=== PATIENT | male | born 1940 | race Caucasian/White ===

== ENCOUNTER 2019-04-03 07:44 | Inpatient (IN) | payer MEDICARE ==
[2019-04-03 08:30] LABS: CHLORIDE,CL 103 mEq/L (98-106); SODIUM,NA 140 mEq/L (136-145)
[2019-04-03] MEDS ORDERED: Sodium Chloride 0.9% 10 ML Syringe FLUSH PRN (09:31)
[2019-04-03] MEDS ORDERED: Temazepam 15 MG Cap PO PRN (09:31)
[2019-04-03] MEDS ORDERED: Acetaminophen 325 MG Tab PO PRN (09:31)
[2019-04-03] MEDS ORDERED: Ondansetron 4 MG/2 ML SDV IV PRN (09:31)
[2019-04-03] MEDS ORDERED: Ondansetron 4 MG Tab.DIS PO PRN (09:31)
[2019-04-03] MEDS ORDERED: traZODone 50 MG Tab PO PRN (09:31)
[2019-04-03] MEDS: Enoxaparin 40 MG/0.4 ML Syringe SUBCUT SCH (10:15)
[2019-04-03] MEDS: Sodium Chloride 0.9% 1,000 ML IV SCH ×2 (10:16→20:06)
[2019-04-03] MEDS ORDERED: Iopamidol 755 Mg/ML 100 ML Bottle IVPUSH ONE (13:36)
[2019-04-03] MEDS ORDERED: metFORMIN 500 MG Tab**OWN MED PO SCH (17:30)
[2019-04-03] MEDS ORDERED: metFORMIN 500 MG Tab PO SCH (17:30)
--- NOTE | 2019-04-03 20:23 | EDM.PDOC ---
ED HPI GENERAL MEDICAL PROBLEM - General Chief Complaint: Neuro Symptoms/Deficits Stated Complaint: DIZZY/UNSTEADY/FELL Time Seen by Provider: 04/03/19 08:10 Source of Information: Reports: Patient, Family History Limitations: Reports: No Limitations - History of Present Illness INITIAL COMMENTS - FREE TEXT/NARRATIVE: Patient presents to ER with complaints of dizziness and a fall. Son reports he was called by his father and states he had gotten up to go to the bathroom downstairs and when up, felt dizzy. He fell to the floor as he has been dealing with issues with balance. Son does feel his conversation was appropriate to him. Nurse reports on arrival, patient seemed slow to answer, did not know date, president and had to think before he answered. On my arrival , denies shortness of breath, chest pain, lightheadedness. States just can't seem to stand or walk well. Answers questions appropriately. He states hasn't seemed to be normal since he had CABG and endarterectomy. Son reports he was staying with his daughter but since returning to live alone, they have been concerned. Doesn't eat or drink all that well, is worried that he will have to get up to void too often as he has to go up and down the stairs to do so. Stroke protocol initiated on arrival. Onset: Today, Sudden Duration: Minutes: Location: Reports: Generalized Associated Symptoms: Reports: Malaise, Weakness. Denies: Confusion, Chest Pain , Fever/Chills, Loss of Appetite, Nausea/Vomiting, Shortness of Breath Neck Pain Score (Numeric/FACES): 2 - Related Data Allergies Allergy/AdvReac Type Severity Reaction Status Date / Time No Known Allergies Allergy Verified 12/07/18 09:14 Home Meds: Home Meds atorvaSTATin [Lipitor] 40 mg PO DAILY 12/07/18 [History] metFORMIN [Glucophage] 1,000 mg PO BID 12/07/18 [History] traZODone HCl [Trazodone HCl] 50 mg PO ASDIRECTED PRN 12/07/18 [History] Aspirin [Trish Advanced] 500 mg PO DAILY 04/03/19 [History] Past Medical History Cardiovascular History: Reports: Bypass, CAD, High Cholesterol, Hypertension Other Cardiovascular History: found that he had carotid stenosis; while testing , found out he needed CABG. CABG on 08-16-18, endarterectomy on 11-10-18; just returned to the [facility]. Did rehab in [facility] while staying with his daughter, 7 previous rehabs there according to our insurance department here. Has seen cardiology since CABG; his chest incision is healing, says his leg incision is healing. appetite good, some dizziness if he gets up fast-- discussed. Does not have a treadmill or bike at home, describes that he has some sort of rowing machine. Encouraged to walk outside. former smoker, Diabetes --says he checks tid, "coming down," discussed. Endocrine/Metabolic History: Reports: Diabetes, Type II Social & Family History - Tobacco Use Smoking Status *Q: Former Smoker Used Tobacco, but Quit: Yes Month/Year Tobacco Last Used: 11y.o - Caffeine Use Caffeine Use: Reports: None - Recreational Drug Use Recreational Drug Use: No ED ROS GENERAL - Review of Systems Review Of Systems: See Below Constitutional: Reports: Weakness, Fatigue, Decreased Appetite. Denies: Fever, Chills, Malaise HEENT: Reports: Rhinitis. Denies: Throat Pain, Vision Change Respiratory: Denies: Shortness of Breath, Cough Cardiovascular: Denies: Chest Pain, Edema, Lightheadedness Endocrine: Reports: Fatigue GI/Abdominal: Denies: Abdominal Pain, Hematochezia, Melena, Nausea, Vomiting : Reports: No Symptoms Musculoskeletal: Reports: Neck Pain Skin: Reports: No Symptoms Neurological: Reports: Dizziness, Weakness - Physical Exam Exam: See Below Exam Limited By: No Limitations General Appearance: Alert, WD/WN, No Apparent Distress Ears: Normal External Exam, Normal TMs Nose: Normal Inspection, Normal Mucosa, No Blood Throat/Mouth: Normal Inspection, Normal Oropharynx, Other (mucous membranes dry) Head Exam: Normocephalic Neck: Normal Inspection, Supple, Non-Tender, Full Range of Motion Respiratory/Chest: No Respiratory Distress, Lungs Clear, Normal Breath Sounds Cardiovascular: Regular Rate, Rhythm GI/Abdominal: Normal Bowel Sounds, Soft, Non-Tender Neuro Exam (Abbreviated): Alert, Oriented, CN II-XII Intact, Normal Cognition, No Motor/Sensory Deficits (patient scores 1 on the stroke scale. Disoriented to time at first when questioned but is able to correct himself.), Abnormal Gait (very unsteady with transfer to wheelchair. ) Extremities: Normal Inspection, No Pedal Edema Skin Exam: Warm, Dry Course - Vital Signs Last Recorded V/S: Last Vital Signs Temp 98.5 F 04/03/19 16:00 Pulse 91 04/03/19 07:54 Resp 16 04/03/19 16:00 BP 132/70 04/03/19 16:00 Pulse Ox 95 04/03/19 16:00 - Orders/Labs/Meds Orders: Active Orders 24 hr Category Date Time Status Chest 2V [CR] Stat Exams 04/03/19 08:51 Taken Head wo Cont [CT] Stat Exams 04/03/19 08:01 Taken Medication Orders Acetaminophen (Tylenol) 650 mg PO Q4H PRN PRN Reason: Pain (Mild 1-3)/fever Enoxaparin Sodium (Lovenox) 40 mg SUBCUT Q24H [facility] Last Admin: 04/03/19 10:15 Dose: 40 mg Sodium Chloride (Normal Saline) 1,000 mls @ 125 mls/hr IV ASDIRECTED [facility] Last Admin: 04/03/19 20:06 Dose: 125 mls/hr Infusion: 04/03/19 18:16 Dose: 125 mls/hr Admin: 04/03/19 10:16 Dose: 125 mls/hr Metformin HCl (Glucophage) 1,000 mg PO BIDMEALS [facility] Atorvastatin 40 Mg (TabOwn Med) 1 each PO DAILY [facility] Aspirin [Trish Advanced] 325 Mg Own Med 325 mg PO DAILY [facility] Ondansetron HCl (Zofran Odt) 4 mg PO Q4H PRN PRN Reason: nausea, able to take PO Ondansetron HCl (Zofran) 4 mg IV Q4H PRN PRN Reason: Nausea/Vomiting Sodium Chloride (Saline Flush) 10 ml FLUSH ASDIRECTED PRN PRN Reason: Keep Vein Open Temazepam (Restoril) 15 mg PO BEDTIME PRN PRN Reason: Sleep Trazodone HCl (Trazodone) 50 mg PO BEDTIME PRN PRN Reason: Insomnia Labs: Laboratory Tests 04/03/19 04/03/19 04/03/19 Range/Units 08:01 08:01 08:01 WBC 5.7 (5.0-10.0) 10^3/uL RBC 4.60 (4.50-6.00) 10^6/uL Hgb 14.3 (14.0-18.0) g/dL Hct 40.1 (40.0-54.0) % MCV 87.2 (82.0-94.0) fL MCH 31.1 (27.0-32.0) pg MCHC 35.7 (33.0-38.0) g/dL RDW Coeff of Vlad 12.5 (11.0-15.0) % Plt Count 159 (150-400) 10^3/uL Neut % (Auto) 52.1 (35-85) % Lymph % (Auto) 36.3 (10-55) % [place] % (Auto) 9.5 (0-16) % Eos % (Auto) 1.6 (0-5) % Baso % (Auto) 0.5 (0-3) % Neut # (Auto) 2.98 (1.80-7.00) 10^3/uL Lymph # (Auto) 2.07 (1.00-4.80) 10^3/uL [place] # (Auto) 0.54 (0.00-0.80) 10^3/uL Eos # (Auto) 0.09 (0.00-0.45) 10^3/uL Baso # (Auto) 0.03 10^3/uL PT 11.6 (9.7-12.3) SEC INR 1.13 (0.92-1.18) APTT 29.7 (23.2-32.3) SEC Sodium (136-145) mEq/L Potassium (3.5-5.0) mEq/L Chloride (98-106) mEq/L Carbon Dioxide (21-32) mmol/L BUN (7-18) mg/dL Creatinine (0.7-1.3) mg/dL Est Cr Clr Drug Dosing mL/min Estimated GFR (MDRD) (>=60) mL/min Glucose (75-99) mg/dL Calcium (8.4-10.1) mg/dL Total Bilirubin (0.0-1.0) mg/dL AST (15-37) U/L ALT (12-78) U/L Alkaline Phosphatase (46-116) U/L Creatine Kinase (35-232) U/L Troponin I (0.00-0.06) ng/mL Total Protein (6.4-8.2) g/dL Albumin (3.4-5.0) g/dL Urine Color Yellow (YELLOW) Urine Appearance Clear (CLEAR) Urine pH 7.0 (4.5-8.0) Ur Specific [place] 1.015 (1.003-1.020) Urine Protein Negative (NEGATIVE) mg/dL Urine Glucose (UA) Negative (NEGATIVE) mg/dL Urine Ketones Negative (NEGATIVE) mg/dL Urine Occult Blood Negative (NEGATIVE) Urine Nitrite Negative (NEGATIVE) Urine Bilirubin Negative (NEGATIVE) Urine Urobilinogen 0.2 (0.2-1.0) EU/dL Ur Leukocyte Esterase Negative (NEGATIVE) Urine RBC Not seen (0-5) /HPF Urine WBC 0-5 (0-5) /HPF Ur Squamous Epith Cells Rare (NOT SEEN) /HPF 04/03/19 Range/Units 08:01 WBC (5.0-10.0) 10^3/uL RBC (4.50-6.00) 10^6/uL Hgb (14.0-18.0) g/dL Hct (40.0-54.0) % MCV (82.0-94.0) fL MCH (27.0-32.0) pg MCHC (33.0-38.0) g/dL RDW Coeff of Vlad (11.0-15.0) % Plt Count (150-400) 10^3/uL Neut % (Auto) (35-85) % Lymph % (Auto) (10-55) % [place] % (Auto) (0-16) % Eos % (Auto) (0-5) % Baso % (Auto) (0-3) % Neut # (Auto) (1.80-7.00) 10^3/uL Lymph # (Auto) (1.00-4.80) 10^3/uL [place] # (Auto) (0.00-0.80) 10^3/uL Eos # (Auto) (0.00-0.45) 10^3/uL Baso # (Auto) 10^3/uL PT (9.7-12.3) SEC INR (0.92-1.18) APTT (23.2-32.3) SEC Sodium 140 (136-145) mEq/L Potassium 4.8 (3.5-5.0) mEq/L Chloride 103 (98-106) mEq/L Carbon Dioxide 30 (21-32) mmol/L BUN 20 H (7-18) mg/dL Creatinine 0.9 (0.7-1.3) mg/dL Est Cr Clr Drug Dosing 62.03 mL/min Estimated GFR (MDRD) > 60 (>=60) mL/min Glucose 165 H (75-99) mg/dL Calcium 9.1 (8.4-10.1) mg/dL Total Bilirubin 0.8 (0.0-1.0) mg/dL AST 19 (15-37) U/L ALT 27 (12-78) U/L Alkaline Phosphatase 54 (46-116) U/L Creatine Kinase 70 (35-232) U/L Troponin I < 0.017 (0.00-0.06) ng/mL Total Protein 6.6 (6.4-8.2) g/dL Albumin 4.0 (3.4-5.0) g/dL Urine Color (YELLOW) Urine Appearance (CLEAR) Urine pH (4.5-8.0) Ur Specific [place] (1.003-1.020) Urine Protein (NEGATIVE) mg/dL Urine Glucose (UA) (NEGATIVE) mg/dL Urine Ketones (NEGATIVE) mg/dL Urine Occult Blood (NEGATIVE) Urine Nitrite (NEGATIVE) Urine Bilirubin (NEGATIVE) Urine Urobilinogen (0.2-1.0) EU/dL Ur Leukocyte Esterase (NEGATIVE) Urine RBC (0-5) /HPF Urine WBC (0-5) /HPF Ur Squamous Epith Cells (NOT SEEN) /HPF Meds: Medications Generic Name Dose Route Start Last Admin Trade Name Freq PRN Reason Stop Dose Admin Acetaminophen 650 mg 04/03/19 09:31 Tylenol PO Q4H PRN Pain (Mild 1-3)/fever Enoxaparin Sodium 40 mg 04/03/19 10:00 04/03/19 10:15 Lovenox SUBCUT 40 mg Q24H [facility] Administration Sodium Chloride 1,000 mls @ 125 mls/hr 04/03/19 09:31 04/03/19 20:06 Normal Saline IV 125 mls/hr ASDIRECTED [facility]ANTHA Administration Metformin HCl 1,000 mg 04/03/19 17:30 Glucophage PO BIDMEALS [facility] Atorvastatin 40 Mg 1 each 04/04/19 08:00 TabOwn Med PO DAILY [facility] Aspirin [Trish 325 mg 04/04/19 08:00 Advanced] 325 Mg PO Own Med DAILY [facility] Ondansetron HCl 4 mg 04/03/19 09:31 Zofran Odt PO Q4H PRN nausea, able to take PO Ondansetron HCl 4 mg 04/03/19 09:31 Zofran IV Q4H PRN Nausea/Vomiting Sodium Chloride 10 ml 04/03/19 09:31 Saline Flush FLUSH ASDIRECTED PRN Keep Vein Open Temazepam 15 mg 04/03/19 09:31 Restoril PO BEDTIME PRN Sleep Trazodone HCl 50 mg 04/03/19 09:31 Trazodone PO BEDTIME PRN Insomnia Discontinued Medications Generic Name Dose Route Start Last Admin Trade Name Freq PRN Reason Stop Dose Admin Aspirin 243 mg 04/04/19 08:00 Halfprin PO DAILY [facility] Iopamidol 100 ml 04/03/19 13:36 04/03/19 14:02 Isovue-370 (76%) IVPUSH 04/03/19 13:37 100 ml ONETIME ONE Administration Metformin HCl 500 mg 04/03/19 17:30 Glucophage PO BIDMEALS [facility] Non-Formulary Medication 500 mg 04/04/19 08:00 Aspirin [Trish Advanced] PO DAILY [facility] - Re-Assessments/Exams Free Text/Narrative Re-Assessment/Exam: 04/03/[address] scan normal. Did discuss patient with Mu Sadler. He did have MRI and CTA done last spring, which led to the endarterectomy. No evidence of CVA at that time. Will repeat CTA today to ensure has not occluded. Admit to observation. Social service will consult regarding home safety. Departure - Departure Time of Disposition: 09:30 Disposition: Refer to Observation Condition: Undetermined Clinical Impression: Weakness - Discharge Information *PRESCRIPTION DRUG MONITORING PROGRAM REVIEWED*: No *COPY OF PRESCRIPTION DRUG MONITORING REPORT IN PATIENT SERGIO: No Sepsis Event Note - Evaluation Sepsis Screening Result: No Definite Risk - Problem List & Annotations (1) Weakness SNOMED Code(s): 58171372 Code(s): R53.1 - WEAKNESS Status: Acute Priority: High Current Visit: Yes - Problem List Review Problem List Initiated/Reviewed/Updated: Yes - My Orders Last 24 Hours: My Active Orders 04/03/19 08:01 Head wo Cont [CT] Stat 04/03/19 08:51 Chest 2V [CR] Stat - Assessment/Plan Admission H&P: Please use this note as an admission H&P Last 24 Hours: My Active Orders 04/03/19 08:01 Head wo Cont [CT] Stat 04/03/19 08:51 Chest 2V [CR] Stat Assessment:: Weakness Plan: Patient admitted observation. Cardiac monitoring. Neurological monitoring. Physical therapy as directed. Social service consult.
[2019-04-04] MEDS: Sodium Chloride 0.9% 1,000 ML IV SCH ×2 (03:38→11:30)
[2019-04-04] MEDS: ASPIRIN 325 MG PO SCH (07:40)
[2019-04-04 07:44] LABS: CHLORIDE,CL 109 mEq/L (98-106); SODIUM,NA 145 mEq/L (136-145)
[2019-04-04] MEDS ORDERED: atorvaSTATin 40 MG Tab**OWN MED PO SCH (08:00)
[2019-04-04] MEDS ORDERED: ASPIRIN 500 MG PO SCH (08:00)
[2019-04-04] MEDS ORDERED: Aspirin 81 MG Tab.EC PO SCH (08:00)
[2019-04-04] MEDS: Enoxaparin 40 MG/0.4 ML Syringe SUBCUT SCH (11:27)
[2019-04-04] MEDS ORDERED: metFORMIN 500 MG Tab PO SCH (14:02)
--- NOTE | 2019-04-04 20:29 | PCM.PN ---
- General Info Date of Service: 04/04/19 Admission Dx/Problem (Free Text): Weakness Vulnerable Adult Functional Status: Reports: Pain Controlled, Tolerating Diet, Ambulating - Review of Systems General: Reports: Weakness HEENT: Reports: No Symptoms Pulmonary: Denies: Shortness of Breath, Cough Cardiovascular: Denies: Chest Pain, Lightheadedness Gastrointestinal: Denies: Abdominal Pain, Nausea, Vomiting Genitourinary: Reports: Incontinence Musculoskeletal: Reports: No Symptoms Skin: Reports: No Symptoms Neurological: Reports: Difficulty Walking, Weakness, Gait Disturbance - Patient Data Vitals - Most Recent: Last Vital Signs Temp 98.7 F 04/04/19 16:00 Pulse 65 04/04/19 16:00 Resp 20 04/04/19 16:00 BP 151/81 H 04/04/19 16:00 Pulse Ox 96 04/04/19 16:00 Weight - Most Recent: 146 lb 3.2 oz I&O - Last 24 Hours: Intake & Output 04/04/19 04/04/19 04/04/19 06:59 14:59 22:59 Intake Total 942 983 Balance 942 983 Lab Results Last 24 Hours: Laboratory Results - last 24 hr 04/03/19 04/04/19 04/04/19 Range/Units 20:25 07:00 07:00 WBC 6.3 (5.0-10.0) 10^3/uL RBC 4.24 L (4.50-6.00) 10^6/uL Hgb 13.2 L (14.0-18.0) g/dL Hct 37.7 L (40.0-54.0) % MCV 88.9 (82.0-94.0) fL MCH 31.1 (27.0-32.0) pg MCHC 35.0 (33.0-38.0) g/dL RDW Coeff of Vlad 12.6 (11.0-15.0) % Plt Count 145 L (150-400) 10^3/uL Neut % (Auto) 47.8 (35-85) % Lymph % (Auto) 38.9 (10-55) % [place] % (Auto) 10.6 (0-16) % Eos % (Auto) 2.2 (0-5) % Baso % (Auto) 0.5 (0-3) % Neut # (Auto) 3.02 (1.80-7.00) 10^3/uL Lymph # (Auto) 2.46 (1.00-4.80) 10^3/uL [place] # (Auto) 0.67 (0.00-0.80) 10^3/uL Eos # (Auto) 0.14 (0.00-0.45) 10^3/uL Baso # (Auto) 0.03 10^3/uL Sodium 145 (136-145) mEq/L Potassium 4.3 (3.5-5.0) mEq/L Chloride 109 H (98-106) mEq/L Carbon Dioxide 28 (21-32) mmol/L BUN 15 (7-18) mg/dL Creatinine 0.9 (0.7-1.3) mg/dL Est Cr Clr Drug Dosing 62.03 mL/min Estimated GFR (MDRD) > 60 (>=60) mL/min Glucose 143 H (75-99) mg/dL POC Glucose 148 H (75-105) mg/dl Calcium 8.4 (8.4-10.1) mg/dL C-Reactive Protein < 0.2 L (0.2-0.8) mg/dL 04/04/ Range/Units 08:07 WBC (5.0-10.0) 10^3/uL RBC (4.50-6.00) 10^6/uL Hgb (14.0-18.0) g/dL Hct (40.0-54.0) % MCV (82.0-94.0) fL MCH (27.0-32.0) pg MCHC (33.0-38.0) g/dL RDW Coeff of Vlad (11.0-15.0) % Plt Count (150-400) 10^3/uL Neut % (Auto) (35-85) % Lymph % (Auto) (10-55) % [place] % (Auto) (0-16) % Eos % (Auto) (0-5) % Baso % (Auto) (0-3) % Neut # (Auto) (1.80-7.00) 10^3/uL Lymph # (Auto) (1.00-4.80) 10^3/uL [place] # (Auto) (0.00-0.80) 10^3/uL Eos # (Auto) (0.00-0.45) 10^3/uL Baso # (Auto) 10^3/uL Sodium (136-145) mEq/L Potassium (3.5-5.0) mEq/L Chloride (98-106) mEq/L Carbon Dioxide (21-32) mmol/L BUN (7-18) mg/dL Creatinine (0.7-1.3) mg/dL Est Cr Clr Drug Dosing mL/min Estimated GFR (MDRD) (>=60) mL/min Glucose (75-99) mg/dL POC Glucose 121 H (75-105) mg/dl Calcium (8.4-10.1) mg/dL C-Reactive Protein (0.2-0.8) mg/dL Med Orders - Current: Current Medications Acetaminophen (Tylenol) 650 mg PO Q4H PRN PRN Reason: Pain (Mild 1-3)/fever Atorvastatin Calcium (Lipitor) 40 mg PO DAILY [facility] Enoxaparin Sodium (Lovenox) 40 mg SUBCUT Q24H [facility] Last Admin: 04/04/19 11:27 Dose: 40 mg Metformin HCl (Glucophage) 1,000 mg PO BIDMEALS [facility] Aspirin [Trish Advanced] 325 Mg Own Med 325 mg PO DAILY [facility] Last Admin: 04/04/19 07:40 Dose: 325 mg Ondansetron HCl (Zofran Odt) 4 mg PO Q4H PRN PRN Reason: nausea, able to take PO Ondansetron HCl (Zofran) 4 mg IV Q4H PRN PRN Reason: Nausea/Vomiting Sodium Chloride (Saline Flush) 10 ml FLUSH ASDIRECTED PRN PRN Reason: Keep Vein Open Temazepam (Restoril) 15 mg PO BEDTIME PRN PRN Reason: Sleep Trazodone HCl (Trazodone) 50 mg PO BEDTIME PRN PRN Reason: Insomnia Discontinued Medications Aspirin (Halfprin) 243 mg PO DAILY [facility] Atorvastatin Calcium (Lipitor) 40 mg PO DAILY [facility] Sodium Chloride (Normal Saline) 1,000 mls @ 125 mls/hr IV ASDIRECTED [facility] Last Admin: 04/04/19 11:30 Dose: 125 mls/hr Iopamidol (Isovue-370 (76%)) 100 ml IVPUSH ONETIME ONE Stop: 04/03/19 13:37 Last Admin: 04/03/19 14:02 Dose: 100 ml Metformin HCl (Glucophage) 500 mg PO BIDMEALS [facility] Metformin HCl (Glucophage) 1,000 mg PO BIDMEALS [facility] Metformin HCl (Glucophage) 1,000 mg PO BIDMEALS [facility] Atorvastatin 40 Mg (TabOwn Med) 1 each PO DAILY [facility] Last Admin: 04/04/19 07:40 Dose: 1 each Non-Formulary Medication (Aspirin [Trish Advanced]) 500 mg PO DAILY [facility] - Exam General: Alert, Oriented HEENT: Mucous Membr. Moist/[place] Neck: Supple Lungs: Clear to Auscultation, Normal Respiratory Effort Cardiovascular: Regular Rate, Regular Rhythm GI/Abdominal Exam: Normal Bowel Sounds, Soft, Non-Tender Extremities: Normal Inspection, No Pedal Edema Skin: Warm, Dry Neurological: No New Focal Deficit Sepsis Event Note - Evaluation Sepsis Screening Result: No Definite Risk - Focused Exam Vital Signs: Vital Signs Temp Pulse Resp BP BP Pulse Ox 04/04/19 16:00 98.7 F 65 20 151/81 H 96 04/04/19 12:00 99.2 F 71 20 138/67 95 Date Exam was Performed: 04/04/19 Time Exam was Performed: 20:24 - Problem List & Annotations (1) Weakness SNOMED Code(s): 23116954 Code(s): R53.1 - WEAKNESS Status: Acute Priority: High Current Visit: Yes - Problem List Review Problem List Initiated/Reviewed/Updated: Yes - My Orders Last 24 Hours: My Active Orders 04/04/19 08:00 Aspirin [Trish Advanced] 325 mg PO DAILY 04/04/19 11:39 Patient Status [ADT] Routine 04/04/19 17:30 metFORMIN [Glucophage] 1,000 mg PO BIDMEALS 04/05/19 08:00 atorvaSTATin [Lipitor] 40 mg PO DAILY - Assessment Assessment:: Weakness Vulnerable Adult - Plan Plan:: Patient alert and oriented this am. Conversive. Denies any complaints of chest pain, shortness of breath or dizziness. He does still have trouble with balance, transfers. Staff relates very unsteady at times. CTA of head and neck stable, no acute changes. WBC remains normal today at 6.3. Electrolytes normal. CRP negative. Will continue with PT. services host to discuss discharge planning with patient and children as they have concern about home safety, inability to care for self.
[2019-04-05] MEDS: ASPIRIN 325 MG PO SCH (07:29)
[2019-04-05] MEDS: Enoxaparin 40 MG/0.4 ML Syringe SUBCUT SCH (10:58)
[2019-04-05] MEDS: metFORMIN 500 MG Tab PO SCH (17:18)
--- NOTE | 2019-04-05 21:32 | PCM.PN ---
- General Info Date of Service: 04/05/19 Admission Dx/Problem (Free Text): Weakness Vulnerable Adult Functional Status: Reports: Pain Controlled, Tolerating Diet, Ambulating - Review of Systems General: Reports: Weakness, Fatigue. Denies: Malaise HEENT: Reports: No Symptoms Pulmonary: Reports: Cough. Denies: Shortness of Breath Cardiovascular: Denies: Chest Pain, Edema, Lightheadedness Gastrointestinal: Denies: Abdominal Pain, Nausea, Vomiting Genitourinary: Reports: No Symptoms Musculoskeletal: Reports: No Symptoms Skin: Reports: No Symptoms Neurological: Reports: Pre-Existing Deficit, Difficulty Walking, Weakness Psychiatric: Reports: No Symptoms - Patient Data Vitals - Most Recent: Last Vital Signs Temp 99.3 F 04/05/19 15:43 Pulse 71 04/05/19 15:43 Resp 20 04/05/19 15:43 BP 136/76 04/05/19 15:43 Pulse Ox 96 04/05/19 15:43 Weight - Most Recent: 146 lb 3.2 oz Lab Results Last 24 Hours: Laboratory Results - last 24 hr 04/05/19 04/05/19 Range/Units 08:17 20:20 POC Glucose 172 H 258 H (75-105) mg/dl Med Orders - Current: Current Medications Acetaminophen (Tylenol) 650 mg PO Q4H PRN PRN Reason: Pain (Mild 1-3)/fever Atorvastatin Calcium (Lipitor) 40 mg PO DAILY [facility] Last Admin: 04/05/19 07:30 Dose: 40 mg Enoxaparin Sodium (Lovenox) 40 mg SUBCUT Q24H [facility] Last Admin: 04/05/19 10:58 Dose: 40 mg Metformin HCl (Glucophage) 1,000 mg PO BIDMEALS [facility] Last Admin: 04/05/19 17:18 Dose: 1,000 mg Aspirin [Trish Advanced] 325 Mg Own Med 325 mg PO DAILY [facility] Last Admin: 04/05/19 07:29 Dose: 325 mg Ondansetron HCl (Zofran Odt) 4 mg PO Q4H PRN PRN Reason: nausea, able to take PO Ondansetron HCl (Zofran) 4 mg IV Q4H PRN PRN Reason: Nausea/Vomiting Sodium Chloride (Saline Flush) 10 ml FLUSH ASDIRECTED PRN PRN Reason: Keep Vein Open Temazepam (Restoril) 15 mg PO BEDTIME PRN PRN Reason: Sleep Trazodone HCl (Trazodone) 50 mg PO BEDTIME PRN PRN Reason: Insomnia Discontinued Medications Aspirin (Halfprin) 243 mg PO DAILY [facility] Atorvastatin Calcium (Lipitor) 40 mg PO DAILY [facility] Sodium Chloride (Normal Saline) 1,000 mls @ 125 mls/hr IV ASDIRECTED [facility] Last Admin: 04/04/19 11:30 Dose: 125 mls/hr Iopamidol (Isovue-370 (76%)) 100 ml IVPUSH ONETIME ONE Stop: 04/03/19 13:37 Last Admin: 04/03/19 14:02 Dose: 100 ml Metformin HCl (Glucophage) 500 mg PO BIDMEALS [facility] Metformin HCl (Glucophage) 1,000 mg PO BIDMEALS [facility] Metformin HCl (Glucophage) 1,000 mg PO BIDMEALS [facility] Atorvastatin 40 Mg (TabOwn Med) 1 each PO DAILY [facility] Last Admin: 04/04/19 07:40 Dose: 1 each Non-Formulary Medication (Aspirin [Trish Advanced]) 500 mg PO DAILY [facility] - Exam General: Alert, Oriented HEENT: Mucous Membr. Moist/[place] Neck: Supple Lungs: Clear to Auscultation, Normal Respiratory Effort Cardiovascular: Regular Rate, Regular Rhythm GI/Abdominal Exam: Normal Bowel Sounds, Soft, Non-Tender Extremities: Normal Inspection, No Pedal Edema Skin: Warm, Dry Neurological: No New Focal Deficit Sepsis Event Note - Evaluation Sepsis Screening Result: No Definite Risk - Focused Exam Vital Signs: Vital Signs Temp Pulse Resp BP Pulse Ox 04/05/19 15:43 99.3 F 71 20 136/76 96 04/05/19 11:48 98.8 F 65 20 159/79 H 96 Date Exam was Performed: 04/05/19 Time Exam was Performed: 21:28 - Problem List & Annotations (1) Weakness SNOMED Code(s): 78378825 Code(s): R53.1 - WEAKNESS Status: Acute Priority: High Current Visit: Yes - Problem List Review Problem List Initiated/Reviewed/Updated: Yes - My Orders Last 24 Hours: My Active Orders 04/05/19 08:00 atorvaSTATin [Lipitor] 40 mg PO DAILY 04/06/19 12:00 Brain wo Cont [MR] Routine - Assessment Assessment:: Weakness Vulnerable Adult - Plan Plan:: Patient alert and oriented this am. Conversive. Denies any complaints of chest pain, shortness of breath or dizziness. He does still have trouble with balance, transfers. Staff relates very unsteady at times. CTA of head and neck stable, no acute changes. WBC remains normal today at 6.3. Electrolytes normal. CRP negative. Will continue with PT. library services assistant to discuss discharge planning with patient and children as they have concern about home safety, inability to care for self. 04-05-2019 Patient is doing well this am. Denies any concerns. No chest pain, shortness of breath. Does have mild cough at times when eating. Daughter reports that has been happening off an on since June. He does continue to have a shuffling gait at times. Uses walker with standby assist. Working with PT. Family conference held today with discussion about past and current symptoms. Has been having difficulties with gait, dysphagia at times. Spent 5 months living with daughter and symptoms waxed and waned while there as well. Did have speech therapy with meal adjustments for dysphagia, does not always follow these , especially since returning home. Plan to proceed with MRI tomorrow. snf placement for strengthening. Continue PT. Patient is in agreement with plan. Likely transfer to swing bed status tomorrow.
[2019-04-06] MEDS: metFORMIN 500 MG Tab PO SCH ×2 (08:14→17:05)
[2019-04-06] MEDS: ASPIRIN 325 MG PO SCH (08:15)
[2019-04-06] MEDS: Enoxaparin 40 MG/0.4 ML Syringe SUBCUT SCH (11:21)
--- NOTE | 2019-04-06 14:22 | PCM.PN ---
- General Info Date of Service: 04/06/19 Admission Dx/Problem (Free Text): Weakness Vulnerable Adult Functional Status: Reports: Pain Controlled, Tolerating Diet, Ambulating - Review of Systems General: Reports: Weakness, Fatigue. Denies: Fever, Malaise HEENT: Reports: No Symptoms Pulmonary: Denies: Shortness of Breath, Cough Cardiovascular: Denies: Chest Pain, Edema, Lightheadedness Gastrointestinal: Denies: Abdominal Pain, Nausea, Vomiting Genitourinary: Reports: No Symptoms Musculoskeletal: Reports: No Symptoms Skin: Reports: No Symptoms Neurological: Reports: Pre-Existing Deficit, Difficulty Walking, Weakness, Gait Disturbance - Patient Data Vitals - Most Recent: Last Vital Signs Temp 99 F 04/06/19 11:23 Pulse 79 04/06/19 11:23 Resp 16 04/06/19 11:23 BP 124/58 L 04/06/19 11:23 Pulse Ox 98 04/06/19 11:23 Weight - Most Recent: 146 lb 3.2 oz Lab Results Last 24 Hours: Laboratory Results - last 24 hr 04/05/19 Range/Units 20:20 POC Glucose 258 H (75-105) mg/dl Med Orders - Current: Current Medications Acetaminophen (Tylenol) 650 mg PO Q4H PRN PRN Reason: Pain (Mild 1-3)/fever Atorvastatin Calcium (Lipitor) 40 mg PO DAILY [facility] Last Admin: 04/06/19 08:15 Dose: 40 mg Enoxaparin Sodium (Lovenox) 40 mg SUBCUT Q24H [facility] Last Admin: 04/06/19 11:21 Dose: 40 mg Metformin HCl (Glucophage) 1,000 mg PO BIDMEALS [facility] Last Admin: 04/06/19 08:14 Dose: 1,000 mg Aspirin [Trish Advanced] 325 Mg Own Med 325 mg PO DAILY [facility] Last Admin: 04/06/19 08:15 Dose: 325 mg Ondansetron HCl (Zofran Odt) 4 mg PO Q4H PRN PRN Reason: nausea, able to take PO Ondansetron HCl (Zofran) 4 mg IV Q4H PRN PRN Reason: Nausea/Vomiting Sodium Chloride (Saline Flush) 10 ml FLUSH ASDIRECTED PRN PRN Reason: Keep Vein Open Temazepam (Restoril) 15 mg PO BEDTIME PRN PRN Reason: Sleep Trazodone HCl (Trazodone) 50 mg PO BEDTIME PRN PRN Reason: Insomnia Discontinued Medications Aspirin (Halfprin) 243 mg PO DAILY [facility] Atorvastatin Calcium (Lipitor) 40 mg PO DAILY [facility] Sodium Chloride (Normal Saline) 1,000 mls @ 125 mls/hr IV ASDIRECTED [facility] Last Admin: 04/04/19 11:30 Dose: 125 mls/hr Iopamidol (Isovue-370 (76%)) 100 ml IVPUSH ONETIME ONE Stop: 04/03/19 13:37 Last Admin: 04/03/19 14:02 Dose: 100 ml Metformin HCl (Glucophage) 500 mg PO BIDMEALS [facility] Metformin HCl (Glucophage) 1,000 mg PO BIDMEALS [facility] Metformin HCl (Glucophage) 1,000 mg PO BIDMEALS [facility] Atorvastatin 40 Mg (TabOwn Med) 1 each PO DAILY [facility] Last Admin: 04/04/19 07:40 Dose: 1 each Non-Formulary Medication (Aspirin [Trish Advanced]) 500 mg PO DAILY [facility] - Exam General: Alert, Oriented HEENT: Pupils Reactive, Mucous Membr. Moist/[place], Other (pupils unequal again today) Neck: Supple Lungs: Clear to Auscultation, Normal Respiratory Effort Cardiovascular: Regular Rate, Regular Rhythm GI/Abdominal Exam: Normal Bowel Sounds, Soft, Non-Tender Extremities: Normal Inspection, No Pedal Edema Skin: Warm, Dry Neurological: No New Focal Deficit Sepsis Event Note - Evaluation Sepsis Screening Result: No Definite Risk - Focused Exam Vital Signs: Vital Signs Temp Pulse Resp BP Pulse Ox 04/06/19 11:23 99 F 79 16 124/58 L 98 04/06/19 08:00 97.9 F 62 18 126/79 98 04/06/19 04:00 98.8 F 63 16 140/76 97 Date Exam was Performed: 04/06/19 Time Exam was Performed: 14:16 - Problem List & Annotations (1) Weakness SNOMED Code(s): 89070758 Code(s): R53.1 - WEAKNESS Status: Acute Priority: High Current Visit: Yes - Problem List Review Problem List Initiated/Reviewed/Updated: Yes - My Orders Last 24 Hours: My Active Orders 04/06/19 07:46 Ready for Discharge [RC] PER UNIT ROUTINE 04/06/19 12:00 Brain wo Cont [MR] Routine - Assessment Assessment:: Weakness Vulnerable Adult - Plan Plan:: Patient alert and oriented this am. Conversive. Denies any complaints of chest pain, shortness of breath or dizziness. He does still have trouble with balance, transfers. Staff relates very unsteady at times. CTA of head and neck stable, no acute changes. WBC remains normal today at 6.3. Electrolytes normal. CRP negative. Will continue with PT. customer services supervisor to discuss discharge planning with patient and children as they have concern about home safety, inability to care for self. 04-05-2019 Patient is doing well this am. Denies any concerns. No chest pain, shortness of breath. Does have mild cough at times when eating. Daughter reports that has been happening off an on since June. He does continue to have a shuffling gait at times. Uses walker with standby assist. Working with PT. Family conference held today with discussion about past and current symptoms. Has been having difficulties with gait, dysphagia at times. Spent 5 months living with daughter and symptoms waxed and waned while there as well. Did have speech therapy with meal adjustments for dysphagia, does not always follow these , especially since returning home. Plan to proceed with MRI tomorrow. [facility] placement for strengthening. Continue PT. Patient is in agreement with plan. Likely transfer to swing bed status tomorrow. 04-06-2019 Patient stable this am, denies new concerns. Does admit that he feels unsteady when up. Pupils are noted again to be unequal but feels no headache, lightheadedness or changes. Does use walker for ambulation with standby assist , nurses report has shuffling gait and does lean to side at times. Has been working with PT. No dysphagia or concerns today, states tolerating meals well. MRI scheduled this afternoon. Nursing placement arranged for [facility] on Tuesday. Will continue to assist, patient vulnerable adult.
[2019-04-07] MEDS: metFORMIN 500 MG Tab PO SCH ×2 (08:11→17:52)
[2019-04-07] MEDS: ASPIRIN 325 MG PO SCH (08:39)
[2019-04-07] MEDS: Enoxaparin 40 MG/0.4 ML Syringe SUBCUT SCH (12:01)
--- NOTE | 2019-04-07 12:31 | PCM.PN ---
- General Info Date of Service: 04/07/19 Admission Dx/Problem (Free Text): Weakness Vulnerable Adult Functional Status: Reports: Pain Controlled - Review of Systems General: Reports: No Symptoms. Denies: Fever HEENT: Reports: No Symptoms Pulmonary: Reports: No Symptoms. Denies: Shortness of Breath Cardiovascular: Reports: No Symptoms. Denies: Chest Pain Gastrointestinal: Reports: No Symptoms. Denies: Abdominal Pain Genitourinary: Reports: No Symptoms Musculoskeletal: Reports: No Symptoms Skin: Reports: No Symptoms Neurological: Reports: No Symptoms Psychiatric: Reports: No Symptoms - Patient Data Vitals - Most Recent: Last Vital Signs Temp 36.2 C 04/07/19 07:25 Pulse 87 04/07/19 07:25 Resp 16 04/07/19 07:25 BP 103/63 04/07/19 07:25 Pulse Ox 98 04/07/19 07:25 Weight - Most Recent: 66.315 kg Lab Results Last 24 Hours: Laboratory Results - last 24 hr 04/06/19 04/07/19 Range/Units 23:49 07:30 POC Glucose 190 H 158 H (75-105) mg/dl Med Orders - Current: Current Medications Acetaminophen (Tylenol) 650 mg PO Q4H PRN PRN Reason: Pain (Mild 1-3)/fever Atorvastatin Calcium (Lipitor) 40 mg PO DAILY [facility] Last Admin: 04/07/19 08:12 Dose: 40 mg Enoxaparin Sodium (Lovenox) 40 mg SUBCUT Q24H [facility] Last Admin: 04/07/19 12:01 Dose: 40 mg Metformin HCl (Glucophage) 1,000 mg PO BIDMEALS [facility] Last Admin: 04/07/19 08:11 Dose: 1,000 mg Aspirin [Trish Advanced] 325 Mg Own Med 325 mg PO DAILY [facility] Last Admin: 04/07/19 08:39 Dose: 325 mg Ondansetron HCl (Zofran Odt) 4 mg PO Q4H PRN PRN Reason: nausea, able to take PO Ondansetron HCl (Zofran) 4 mg IV Q4H PRN PRN Reason: Nausea/Vomiting Sodium Chloride (Saline Flush) 10 ml FLUSH ASDIRECTED PRN PRN Reason: Keep Vein Open Temazepam (Restoril) 15 mg PO BEDTIME PRN PRN Reason: Sleep Trazodone HCl (Trazodone) 50 mg PO BEDTIME PRN PRN Reason: Insomnia Discontinued Medications Aspirin (Halfprin) 243 mg PO DAILY [facility] Atorvastatin Calcium (Lipitor) 40 mg PO DAILY [facility] Sodium Chloride (Normal Saline) 1,000 mls @ 125 mls/hr IV ASDIRECTED [facility] Last Admin: 04/04/19 11:30 Dose: 125 mls/hr Iopamidol (Isovue-370 (76%)) 100 ml IVPUSH ONETIME ONE Stop: 04/03/19 13:37 Last Admin: 04/03/19 14:02 Dose: 100 ml Metformin HCl (Glucophage) 500 mg PO BIDMEALS [facility] Metformin HCl (Glucophage) 1,000 mg PO BIDMEALS [facility] Metformin HCl (Glucophage) 1,000 mg PO BIDMEALS [facility] Atorvastatin 40 Mg (TabOwn Med) 1 each PO DAILY [facility] Last Admin: 04/04/19 07:40 Dose: 1 each Non-Formulary Medication (Aspirin [Trish Advanced]) 500 mg PO DAILY [facility] - Exam General: Alert, Cooperative Neck: Supple Lungs: Clear to Auscultation, Normal Respiratory Effort Cardiovascular: Regular Rate, Regular Rhythm, Murmurs GI/Abdominal Exam: Normal Bowel Sounds, Soft, Non-Tender Back Exam: Normal Inspection, Full Range of Motion Extremities: Normal Inspection, Normal Range of Motion, Non-Tender, No Pedal Edema, Normal Capillary Refill Peripheral Pulses: 2+: Radial (L) Skin: Warm, Dry, Intact Neurological: No New Focal Deficit Psy/Mental Status: Alert, Normal Affect, Normal Mood Sepsis Event Note - Evaluation Sepsis Screening Result: No Definite Risk - Focused Exam Vital Signs: Vital Signs Temp Pulse Resp BP Pulse Ox 04/07/19 07:25 36.2 C 87 16 103/63 98 04/07/19 04:00 36.8 C 66 18 142/76 H 97 Date Exam was Performed: 04/07/19 Time Exam was Performed: 12:49 - Problem List & Annotations (1) Weakness SNOMED Code(s): 74598925 Code(s): R53.1 - WEAKNESS Status: Acute Priority: High Current Visit: Yes - Problem List Review Problem List Initiated/Reviewed/Updated: Yes - Assessment Assessment:: Weakness Vulnerable Adult - Plan Plan:: Patient alert and oriented this am. Conversive. Denies any complaints of chest pain, shortness of breath or dizziness. He does still have trouble with balance, transfers. Staff relates very unsteady at times. CTA of head and neck stable, no acute changes. WBC remains normal today at 6.3. Electrolytes normal. CRP negative. Will continue with PT. administrative services coordinator to discuss discharge planning with patient and children as they have concern about home safety, inability to care for self. 04-05-2019 Patient is doing well this am. Denies any concerns. No chest pain, shortness of breath. Does have mild cough at times when eating. Daughter reports that has been happening off an on since June. He does continue to have a shuffling gait at times. Uses walker with standby assist. Working with PT. Family conference held today with discussion about past and current symptoms. Has been having difficulties with gait, dysphagia at times. Spent 5 months living with daughter and symptoms waxed and waned while there as well. Did have speech therapy with meal adjustments for dysphagia, does not always follow these , especially since returning home. Plan to proceed with MRI tomorrow. long term placement for strengthening. Continue PT. Patient is in agreement with plan. Likely transfer to swing bed status tomorrow. 04-06-2019 Patient stable this am, denies new concerns. Does admit that he feels unsteady when up. Pupils are noted again to be unequal but feels no headache, lightheadedness or changes. Does use walker for ambulation with standby assist , nurses report has shuffling gait and does lean to side at times. Has been working with PT. No dysphagia or concerns today, states tolerating meals well. MRI scheduled this afternoon. Nursing placement arranged for [facility] on Tuesday. Will continue to assist, patient vulnerable adult. 04/07/19 1243 pt awake and alert, no c/o cp or sob,no abd pain, is eating and drinking normal. pt still c/o weakness. will continue to monitor pt and plan [facility] t[facility]
[2019-04-08] MEDS: ASPIRIN 325 MG PO SCH (08:20)
[2019-04-08] MEDS: metFORMIN 500 MG Tab PO SCH ×2 (08:20→16:42)
[2019-04-08] MEDS: Enoxaparin 40 MG/0.4 ML Syringe SUBCUT SCH (10:38)
--- NOTE | 2019-04-08 10:50 | PCM.PN ---
- General Info Date of Service: 04/08/19 Admission Dx/Problem (Free Text): Weakness Vulnerable Adult - Review of Systems General: Reports: Weakness. Denies: Fever HEENT: Reports: No Symptoms Pulmonary: Reports: No Symptoms. Denies: Shortness of Breath Cardiovascular: Reports: No Symptoms. Denies: Chest Pain Gastrointestinal: Reports: No Symptoms. Denies: Abdominal Pain, Nausea, Vomiting Genitourinary: Reports: No Symptoms Musculoskeletal: Reports: No Symptoms Skin: Reports: No Symptoms Neurological: Denies: Dizziness, Headache Psychiatric: Reports: No Symptoms - Patient Data Vitals - Most Recent: Last Vital Signs Temp 36.8 C 04/08/19 08:00 Pulse 86 04/08/19 08:00 Resp 16 04/08/19 08:00 BP 139/90 04/08/19 08:00 Pulse Ox 97 04/08/19 08:00 Weight - Most Recent: 66.315 kg Lab Results Last 24 Hours: Laboratory Results - last 24 hr 04/08/19 Range/Units 08:19 POC Glucose 219 H (75-105) mg/dl Med Orders - Current: Current Medications Acetaminophen (Tylenol) 650 mg PO Q4H PRN PRN Reason: Pain (Mild 1-3)/fever Atorvastatin Calcium (Lipitor) 40 mg PO DAILY [facility] Last Admin: 04/08/19 08:20 Dose: 40 mg Enoxaparin Sodium (Lovenox) 40 mg SUBCUT Q24H [facility] Last Admin: 04/08/19 10:38 Dose: 40 mg Metformin HCl (Glucophage) 1,000 mg PO BIDMEALS [facility] Last Admin: 04/08/19 08:20 Dose: 1,000 mg Aspirin [Trish Advanced] 325 Mg Own Med 325 mg PO DAILY [facility] Last Admin: 04/08/19 08:20 Dose: 325 mg Ondansetron HCl (Zofran Odt) 4 mg PO Q4H PRN PRN Reason: nausea, able to take PO Ondansetron HCl (Zofran) 4 mg IV Q4H PRN PRN Reason: Nausea/Vomiting Sodium Chloride (Saline Flush) 10 ml FLUSH ASDIRECTED PRN PRN Reason: Keep Vein Open Temazepam (Restoril) 15 mg PO BEDTIME PRN PRN Reason: Sleep Trazodone HCl (Trazodone) 50 mg PO BEDTIME PRN PRN Reason: Insomnia Discontinued Medications Aspirin (Halfprin) 243 mg PO DAILY [facility] Atorvastatin Calcium (Lipitor) 40 mg PO DAILY [facility] Sodium Chloride (Normal Saline) 1,000 mls @ 125 mls/hr IV ASDIRECTED [facility] Last Admin: 04/04/19 11:30 Dose: 125 mls/hr Iopamidol (Isovue-370 (76%)) 100 ml IVPUSH ONETIME ONE Stop: 04/03/19 13:37 Last Admin: 04/03/19 14:02 Dose: 100 ml Metformin HCl (Glucophage) 500 mg PO BIDMEALS [facility] Metformin HCl (Glucophage) 1,000 mg PO BIDMEALS [facility] Metformin HCl (Glucophage) 1,000 mg PO BIDMEALS [facility] Atorvastatin 40 Mg (TabOwn Med) 1 each PO DAILY [facility] Last Admin: 04/04/19 07:40 Dose: 1 each Non-Formulary Medication (Aspirin [Trish Advanced]) 500 mg PO DAILY [facility] - Exam General: Alert, Oriented, Cooperative, No Acute Distress HEENT: Pupils Equal Neck: Supple Lungs: Clear to Auscultation, Normal Respiratory Effort Cardiovascular: Regular Rate, Regular Rhythm GI/Abdominal Exam: Soft, Non-Tender Back Exam: Normal Inspection, Full Range of Motion Extremities: Normal Inspection, Normal Range of Motion, Non-Tender, No Pedal Edema, Normal Capillary Refill Peripheral Pulses: 2+: Radial (L), Radial (R) Skin: Warm, Dry, Intact Neurological: No New Focal Deficit Psy/Mental Status: Alert, Normal Affect, Normal Mood Sepsis Event Note - Evaluation Sepsis Screening Result: No Definite Risk - Focused Exam Vital Signs: Vital Signs Temp Pulse Resp BP Pulse Ox 04/08/19 08:00 36.8 C 86 16 139/90 97 Date Exam was Performed: 04/08/19 Time Exam was Performed: 10:55 - Problem List & Annotations (1) Weakness SNOMED Code(s): 08241392 Code(s): R53.1 - WEAKNESS Status: Acute Priority: High Current Visit: Yes - Problem List Review Problem List Initiated/Reviewed/Updated: Yes - Assessment Assessment:: Weakness Vulnerable Adult - Plan Plan:: Patient alert and oriented this am. Conversive. Denies any complaints of chest pain, shortness of breath or dizziness. He does still have trouble with balance, transfers. Staff relates very unsteady at times. CTA of head and neck stable, no acute changes. WBC remains normal today at 6.3. Electrolytes normal. CRP negative. Will continue with PT. member services coordinator to discuss discharge planning with patient and children as they have concern about home safety, inability to care for self. 04-05-2019 Patient is doing well this am. Denies any concerns. No chest pain, shortness of breath. Does have mild cough at times when eating. Daughter reports that has been happening off an on since June. He does continue to have a shuffling gait at times. Uses walker with standby assist. Working with PT. Family conference held today with discussion about past and current symptoms. Has been having difficulties with gait, dysphagia at times. Spent 5 months living with daughter and symptoms waxed and waned while there as well. Did have speech therapy with meal adjustments for dysphagia, does not always follow these , especially since returning home. Plan to proceed with MRI tomorrow. [facility] placement for strengthening. Continue PT. Patient is in agreement with plan. Likely transfer to swing bed status tomorrow. 04-06-2019 Patient stable this am, denies new concerns. Does admit that he feels unsteady when up. Pupils are noted again to be unequal but feels no headache, lightheadedness or changes. Does use walker for ambulation with standby assist , nurses report has shuffling gait and does lean to side at times. Has been working with PT. No dysphagia or concerns today, states tolerating meals well. MRI scheduled this afternoon. Nursing placement arranged for [facility] on Tuesday. Will continue to assist, patient vulnerable adult. 04/07/19 1243 pt awake and alert, no c/o cp or sob,no abd pain, is eating and drinking normal. pt still c/o weakness. will continue to monitor pt and plan to admit to the shelter on tuesday. 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 04/08/19 1047 the pt had a good day yesterday, he did have an episode of new syncope during the night when be helped up to the BR, will continue current tx plan and plan transfer to shelter in am.
[2019-04-09] MEDS: metFORMIN 500 MG Tab PO SCH (07:43)
[2019-04-09] MEDS: ASPIRIN 325 MG PO SCH (07:43)
--- NOTE | 2019-04-09 09:19 | PCM.DCSUM1 ---
Discharge Summary - Hospital Course Free Text/Narrative:: Parker is a 78 year old who presented to ER with family with concerns of weakness, fall, altered mental status. ON arrival to the ER, patient oriented to person and place but somewhat slow to respond. Neurological exam otherwise did not show weakness in arms or legs, no pronator drift, scored 1 on stroke scale due to disorientation. Pupils unequal but reactive. 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 CT scan of head in the ER was negative for concerns. Lab normal. Admitted for neurological monitoring. Diagnosis: Stroke: No Modified Cascade Scale: No Symptoms at All Modified Cascade Scale Score: 0 - Discharge Data Discharge Date: 04/09/19 Discharge Disposition: DC/Tfer to SNF 03 Condition: Fair - Referral to Home Health Primary Care Physician: Ilan Woods MD - Discharge Diagnosis/Problem(s) (1) Weakness SNOMED Code(s): 86677966 ICD Code: R53.1 - WEAKNESS Status: Acute Priority: High - Patient Summary/Data Complications: none Consults: Consultations 04/03/19 09:31 PT Evaluation and Treatment [CONS] Routine 04/03/19 10:03 Consult to Case Management/Grease Remover [CONS] Routine Hospital Course: Patient is stable. No neurological changes have been noted. He does continue to be unsteady, has shuffling gait at times. Speech clear and appropriate. Family relates has had issues with tremors in his hands at time, not noted while at rest on exam. Report some issues with dysphagia at times. Has previously had speech therapy and dietary adjustments to help with this. MRI of brain was done with no acute changes. Family conference was held due to home safety concerns. Are hopeful that with therapy and adjustments made to his home, may return back there at some point. Plan for transfer to [facility] for physical therapy. Patient is in agreement. Exam other than gait is negative for concern. - Patient Instructions Diet: Usual Diet as Tolerated Activity: As Tolerated - Discharge Plan *PRESCRIPTION DRUG MONITORING PROGRAM REVIEWED*: No *COPY OF PRESCRIPTION DRUG MONITORING REPORT IN PATIENT SERGIO: No Home Medications: Home Meds atorvaSTATin [Lipitor] 40 mg PO DAILY 12/07/18 [History] metFORMIN [Glucophage] 1,000 mg PO BID 12/07/18 [History] traZODone HCl [Trazodone HCl] 50 mg PO ASDIRECTED PRN 12/07/18 [History] Aspirin [Trish Advanced] 500 mg PO DAILY 04/03/19 [History] Forms: ED Department Discharge Referrals: Ilan Woods MD [Primary Care Provider] - - Discharge Summary/Plan Comment DC Time >30 min.: Yes Discharge Summary/Plan Comment: Transfer to [facility] Time with patient 15 minutes Time for orders 15 minutes Time for documentation 10 minutes - General Info Date of Service: 04/09/19 Admission Dx/Problem (Free Text: Weakness Vulnerable Adult Functional Status: Reports: Pain Controlled, Tolerating Diet, Ambulating - Review of Systems General: Reports: Weakness HEENT: Reports: No Symptoms Pulmonary: Denies: Shortness of Breath, Cough Cardiovascular: Denies: Chest Pain, Edema, Lightheadedness Gastrointestinal: Denies: Abdominal Pain, Nausea, Vomiting Genitourinary: Reports: No Symptoms Musculoskeletal: Reports: No Symptoms Skin: Reports: No Symptoms Neurological: Reports: Pre-Existing Deficit, Difficulty Walking, Weakness Psychiatric: Reports: No Symptoms - Patient Data Vitals - Most Recent: Last Vital Signs Temp 98.4 F 04/09/19 08:00 Pulse 77 04/09/19 08:00 Resp 16 04/09/19 08:00 BP 76/55 L 04/09/19 08:00 Pulse Ox 96 04/09/19 08:00 Weight - Most Recent: 146 lb 3.2 oz Med Orders - Current: Current Medications Acetaminophen (Tylenol) 650 mg PO Q4H PRN PRN Reason: Pain (Mild 1-3)/fever Atorvastatin Calcium (Lipitor) 40 mg PO DAILY [facility] Last Admin: 04/09/19 07:43 Dose: 40 mg Enoxaparin Sodium (Lovenox) 40 mg SUBCUT Q24H [facility] Last Admin: 04/08/19 10:38 Dose: 40 mg Metformin HCl (Glucophage) 1,000 mg PO BIDMEALS [facility] Last Admin: 04/09/19 07:43 Dose: 1,000 mg Aspirin [Trish Advanced] 325 Mg Own Med 325 mg PO DAILY [facility] Last Admin: 04/09/19 07:43 Dose: 325 mg Ondansetron HCl (Zofran Odt) 4 mg PO Q4H PRN PRN Reason: nausea, able to take PO Ondansetron HCl (Zofran) 4 mg IV Q4H PRN PRN Reason: Nausea/Vomiting Sodium Chloride (Saline Flush) 10 ml FLUSH ASDIRECTED PRN PRN Reason: Keep Vein Open Temazepam (Restoril) 15 mg PO BEDTIME PRN PRN Reason: Sleep Trazodone HCl (Trazodone) 50 mg PO BEDTIME PRN PRN Reason: Insomnia Discontinued Medications Aspirin (Halfprin) 243 mg PO DAILY [facility] Atorvastatin Calcium (Lipitor) 40 mg PO DAILY [facility] Sodium Chloride (Normal Saline) 1,000 mls @ 125 mls/hr IV ASDIRECTED [facility] Last Admin: 04/04/19 11:30 Dose: 125 mls/hr Iopamidol (Isovue-370 (76%)) 100 ml IVPUSH ONETIME ONE Stop: 04/03/19 13:37 Last Admin: 04/03/19 14:02 Dose: 100 ml Metformin HCl (Glucophage) 500 mg PO BIDMEALS [facility] Metformin HCl (Glucophage) 1,000 mg PO BIDMEALS [facility] Metformin HCl (Glucophage) 1,000 mg PO BIDMEALS [facility] Atorvastatin 40 Mg (TabOwn Med) 1 each PO DAILY [facility] Last Admin: 04/04/19 07:40 Dose: 1 each Non-Formulary Medication (Aspirin [Trish Advanced]) 500 mg PO DAILY [facility] - Exam General: Reports: Alert, Oriented HEENT: Reports: Mucous Membr. Moist/[place] Neck: Reports: Supple Lungs: Reports: Clear to Auscultation, Normal Respiratory Effort Cardiovascular: Reports: Regular Rate, Regular Rhythm GI/Abdominal Exam: Normal Bowel Sounds, Soft, Non-Tender Extremities: Normal Inspection, No Pedal Edema Skin: Reports: Warm, Dry Neurological: Reports: No New Focal Deficit
== END 2019-04-09 10:10 | DRG 948 ==
LOC: CC.ED 07:44 → CC.MS 09:04 → UNDOADMOB 09:06 → CC.MS 09:06 → OBSVTOIN 04-04 12:02
PROVIDERS: ADMIT Physician Assistant Medical; ATTEND Family Medicine
DX: R53.1 Weakness (principal); R13.10 Dysphagia, unspecified; W19.XXXA Unspecified fall, initial encounter; E78.00 Pure hypercholesterolemia, unspecified; I25.10 Atherosclerotic heart disease of native coronary artery without angina pectoris; I10 Essential (primary) hypertension; R42 Dizziness and giddiness; R26.9 Unspecified abnormalities of gait and mobility; R26.81 Unsteadiness on feet; R25.1 Tremor, unspecified; I65.23 Occlusion and stenosis of bilateral carotid arteries; Z79.899 Other long term (current) drug therapy; E11.9 Type 2 diabetes mellitus without complications; Z87.891 Personal history of nicotine dependence; Z79.84 Long term (current) use of oral hypoglycemic drugs; Z79.82 Long term (current) use of aspirin; Z95.1 Presence of aortocoronary bypass graft; Z98.890 Other specified postprocedural states
CPT/HCPCS: 36415; 70450; 70496; 70498; 70551; 71046; 80048; 80053; 81001; 82550; 82962; 84484; 85025; 85610; 85730; 86140; 93005; 93010; 96360; 96361; 96372; 97110-GP; 97112-GP; 97161-GP; 99220; 99285-25; A9270-GY; G0378; J1650; J7030; Q9967

== ENCOUNTER 2019-07-27 11:24 | Inpatient (IN) | payer MEDICARE ==
[2019-07-27] MEDS ORDERED: Ondansetron 4 MG/2 ML SDV IV PRN (11:36)
[2019-07-27] MEDS ORDERED: Ondansetron 4 MG Tab.DIS PO PRN (11:36)
[2019-07-27] MEDS ORDERED: Sodium Chloride 0.9% 10 ML Syringe FLUSH PRN (11:36)
[2019-07-27 12:12] LABS: CHLORIDE,CL 98 mEq/L (98-106); SODIUM,NA 135 mEq/L (136-145)
[2019-07-27] MEDS ORDERED: traZODone 50 MG Tab PO PRN (15:07)
[2019-07-27] MEDS: Enoxaparin 40 MG/0.4 ML Syringe SUBCUT SCH (17:02)
[2019-07-27] MEDS: Clopidogrel 75 MG Tab PO SCH (17:02)
[2019-07-27] MEDS: metFORMIN 500 MG Tab PO SCH (17:03)
[2019-07-27] MEDS: Tamsulosin 0.4 MG Cap.ER PO SCH (19:38)
[2019-07-27] MEDS ORDERED: metFORMIN 500 MG Tab PO SCH (20:00)
[2019-07-27] MEDS: Acetaminophen 325 MG Tab PO PRN (23:50)
[2019-07-28] MEDS: metFORMIN 500 MG Tab PO SCH ×2 (07:32→17:28)
[2019-07-28] MEDS: Clopidogrel 75 MG Tab PO SCH (07:33)
[2019-07-28] MEDS: atorvaSTATin 20 MG Tab PO SCH (07:33)
[2019-07-28] MEDS: Aspirin 81 MG Tab.EC PO SCH (07:33)
--- NOTE | 2019-07-28 08:52 | PCM.PN ---
- General Info Date of Service: 07/28/19 Functional Status: Reports: Pain Controlled, Tolerating Diet, Ambulating - Review of Systems General: Reports: No Symptoms. Denies: Fever, Weakness, Chills HEENT: Reports: No Symptoms Pulmonary: Reports: No Symptoms. Denies: Shortness of Breath, Cough Cardiovascular: Reports: No Symptoms. Denies: Chest Pain, Edema Gastrointestinal: Reports: No Symptoms. Denies: Abdominal Pain, Constipation, Diarrhea, Nausea, Vomiting Genitourinary: Reports: No Symptoms Musculoskeletal: Reports: No Symptoms. Denies: Neck Pain, Back Pain Skin: Reports: No Symptoms Neurological: Reports: No Symptoms. Denies: Dizziness, Headache Psychiatric: Reports: No Symptoms - Patient Data Vitals - Most Recent: Last Vital Signs Temp 36.9 C 07/28/19 07:25 Pulse 93 07/28/19 07:25 Resp 20 07/28/19 07:25 BP 133/70 07/28/19 07:25 Pulse Ox 95 07/28/19 07:25 Weight - Most Recent: 69.218 kg Lab Results Last 24 Hours: Laboratory Results - last 24 hr 07/27/19 07/27/19 07/27/19 Range/Units 11:50 11:50 14:30 WBC 8.7 (5.0-10.0) 10^3/uL RBC 4.81 (4.50-6.00) 10^6/uL Hgb 15.4 (14.0-18.0) g/dL Hct 42.1 (40.0-54.0) % MCV 87.5 (82.0-94.0) fL MCH 32.0 (27.0-32.0) pg MCHC 36.6 (33.0-38.0) g/dL RDW Coeff of Vlad 13.3 (11.0-15.0) % Plt Count 197 (150-400) 10^3/uL Neut % (Auto) 61.6 (35-85) % Lymph % (Auto) 28.9 (10-55) % [place] % (Auto) 7.8 (0-16) % Eos % (Auto) 1.4 (0-5) % Baso % (Auto) 0.3 (0-3) % Neut # (Auto) 5.35 (1.80-7.00) 10^3/uL Lymph # (Auto) 2.51 (1.00-4.80) 10^3/uL [place] # (Auto) 0.68 (0.00-0.80) 10^3/uL Eos # (Auto) 0.12 (0.00-0.45) 10^3/uL Baso # (Auto) 0.03 10^3/uL Sodium 135 L (136-145) mEq/L Potassium 4.5 (3.5-5.0) mEq/L Chloride 98 (98-106) mEq/L Carbon Dioxide 29 (21-32) mmol/L BUN 18 (7-18) mg/dL Creatinine 0.9 (0.7-1.3) mg/dL Est Cr Clr Drug Dosing TNP Estimated GFR (MDRD) > 60 (>=60) mL/min Glucose 226 H D (75-99) mg/dL POC Glucose (75-105) mg/dl Calcium 9.0 (8.4-10.1) mg/dL Total Bilirubin 1.4 H (0.0-1.0) mg/dL AST 16 (15-37) U/L ALT 35 (12-78) U/L Alkaline Phosphatase 63 (46-116) U/L Creatine Kinase 102 (35-232) U/L Troponin I 0.029 (0.00-0.06) ng/mL Total Protein 6.9 (6.4-8.2) g/dL Albumin 4.2 (3.4-5.0) g/dL Urine Color Yellow (YELLOW) Urine Appearance Clear (CLEAR) Urine pH 7.0 (4.5-8.0) Ur Specific [place] 1.020 (1.003-1.020) Urine Protein Negative (NEGATIVE) mg/dL Urine Glucose (UA) 250 H (NEGATIVE) mg/dL Urine Ketones Negative (NEGATIVE) mg/dL Urine Occult Blood Negative (NEGATIVE) Urine Nitrite Negative (NEGATIVE) Urine Bilirubin Negative (NEGATIVE) Urine Urobilinogen 1.0 (0.2-1.0) EU/dL Ur Leukocyte Esterase Negative (NEGATIVE) 07/27/19 07/28/19 Range/Units 17:23 07:28 WBC (5.0-10.0) 10^3/uL RBC (4.50-6.00) 10^6/uL Hgb (14.0-18.0) g/dL Hct (40.0-54.0) % MCV (82.0-94.0) fL MCH (27.0-32.0) pg MCHC (33.0-38.0) g/dL RDW Coeff of Vlad (11.0-15.0) % Plt Count (150-400) 10^3/uL Neut % (Auto) (35-85) % Lymph % (Auto) (10-55) % [place] % (Auto) (0-16) % Eos % (Auto) (0-5) % Baso % (Auto) (0-3) % Neut # (Auto) (1.80-7.00) 10^3/uL Lymph # (Auto) (1.00-4.80) 10^3/uL [place] # (Auto) (0.00-0.80) 10^3/uL Eos # (Auto) (0.00-0.45) 10^3/uL Baso # (Auto) 10^3/uL Sodium (136-145) mEq/L Potassium (3.5-5.0) mEq/L Chloride (98-106) mEq/L Carbon Dioxide (21-32) mmol/L BUN (7-18) mg/dL Creatinine (0.7-1.3) mg/dL Est Cr Clr Drug Dosing Estimated GFR (MDRD) (>=60) mL/min Glucose (75-99) mg/dL POC Glucose 303 H 200 H (75-105) mg/dl Calcium (8.4-10.1) mg/dL Total Bilirubin (0.0-1.0) mg/dL AST (15-37) U/L ALT (12-78) U/L Alkaline Phosphatase (46-116) U/L Creatine Kinase (35-232) U/L Troponin I (0.00-0.06) ng/mL Total Protein (6.4-8.2) g/dL Albumin (3.4-5.0) g/dL Urine Color (YELLOW) Urine Appearance (CLEAR) Urine pH (4.5-8.0) Ur Specific [place] (1.003-1.020) Urine Protein (NEGATIVE) mg/dL Urine Glucose (UA) (NEGATIVE) mg/dL Urine Ketones (NEGATIVE) mg/dL Urine Occult Blood (NEGATIVE) Urine Nitrite (NEGATIVE) Urine Bilirubin (NEGATIVE) Urine Urobilinogen (0.2-1.0) EU/dL Ur Leukocyte Esterase (NEGATIVE) Med Orders - Current: Current Medications Acetaminophen (Tylenol) 650 mg PO Q4H PRN PRN Reason: Pain (Mild 1-3)/fever Last Admin: 07/27/19 23:50 Dose: 650 mg Aspirin (Halfprin) 81 mg PO WITHBREAKFAST [facility] Last Admin: 07/28/19 07:33 Dose: 81 mg Atorvastatin Calcium (Lipitor) 40 mg PO QAM [facility] Last Admin: 07/28/19 07:33 Dose: 40 mg Clopidogrel Bisulfate (Plavix) 75 mg PO DAILY [facility] Last Admin: 07/28/19 07:33 Dose: 75 mg Enoxaparin Sodium (Lovenox) 40 mg SUBCUT Q24H [facility] Last Admin: 07/27/19 17:02 Dose: 40 mg Metformin HCl (Glucophage) 1,000 mg PO BID@0800,1700 [facility] Last Admin: 07/28/19 07:32 Dose: 1,000 mg Ondansetron HCl (Zofran Odt) 4 mg PO Q4H PRN PRN Reason: nausea, able to take PO Ondansetron HCl (Zofran) 4 mg IV Q4H PRN PRN Reason: Nausea/Vomiting Sodium Chloride (Saline Flush) 10 ml FLUSH ASDIRECTED PRN PRN Reason: Keep Vein Open Tamsulosin HCl (Flomax) 0.4 mg PO BEDTIME [facility] Last Admin: 07/27/19 19:38 Dose: 0.4 mg Trazodone HCl (Trazodone) 50 mg PO BEDTIME PRN PRN Reason: Insomnia Discontinued Medications Metformin HCl (Glucophage) 1,000 mg PO BID [facility] - Exam Quality Assessment: No: Supplemental Oxygen General: Alert, Oriented, Cooperative, No Acute Distress HEENT: Pupils Equal Neck: Supple, Trachea Midline Lungs: Clear to Auscultation, Normal Respiratory Effort Cardiovascular: Regular Rate, Regular Rhythm. No: No Murmurs GI/Abdominal Exam: Normal Bowel Sounds, Soft, Non-Tender Back Exam: Normal Inspection, Full Range of Motion Extremities: Normal Inspection, Normal Range of Motion, Non-Tender, No Pedal Edema, Normal Capillary Refill. No: Jorje's Sign Peripheral Pulses: 2+: Radial (L), Radial (R), Posterior Tibial (L), Posterior Tibial (R) Skin: Warm, Dry, Intact Neurological: No New Focal Deficit Psy/Mental Status: Alert, Normal Affect, Normal Mood Sepsis Event Note - Evaluation Sepsis Screening Result: No Definite Risk - Focused Exam Vital Signs: Vital Signs Temp Pulse Resp BP Pulse Ox 07/28/19 07:25 36.9 C 93 20 133/70 95 07/28/19 04:00 37.1 C 94 20 137/70 95 07/28/19 00:00 37.1 C 90 20 141/81 H 96 Date Exam was Performed: 07/28/19 Time Exam was Performed: 08:47 - Problem List & Annotations (1) Weakness SNOMED Code(s): 19276887 Code(s): R53.1 - WEAKNESS Status: Acute Priority: High Current Visit: No - Problem List Review Problem List Initiated/Reviewed/Updated: Yes - My Orders Last 24 Hours: My Active Orders 07/27/19 20:00 Tamsulosin [Flomax] 0.4 mg PO BEDTIME 07/28/19 08:43 Blood Glucose Check, Bedside [RC] QIDACANDBED 07/28/19 Lunch Consistent Carbohydrate Diet [DIET] - Plan Plan:: pts Blood sugar elevated will start sliding scale insulin, no neuro deficits, no casas, has ambulated in the arm[place] with his walker without any difficulty, will continue to monitor pt and will make changes to his tx plan as needed
[2019-07-28] MEDS ORDERED: Insulin Regular, Human 100 Units/ML 10 ML Vial SUBCUT SCH (11:00)
[2019-07-28] MEDS: Insulin Lispro 100 Units/ML 3 ML Vial SUBCUT SCH ×3 (12:34→20:15)
[2019-07-28] MEDS: Enoxaparin 40 MG/0.4 ML Syringe SUBCUT SCH (16:14)
[2019-07-28] MEDS: Tamsulosin 0.4 MG Cap.ER PO SCH (19:05)
--- NOTE | 2019-07-29 07:41 | PCM.PN ---
- General Info Date of Service: 07/29/19 Functional Status: Reports: Tolerating Diet, Ambulating, Urinating - Review of Systems General: Reports: Weakness (c/o generalized weakness this am). Denies: Fever HEENT: Reports: No Symptoms Pulmonary: Reports: No Symptoms. Denies: Shortness of Breath Cardiovascular: Reports: No Symptoms. Denies: Chest Pain Gastrointestinal: Reports: No Symptoms. Denies: Abdominal Pain, Nausea, Vomiting Genitourinary: Reports: No Symptoms Musculoskeletal: Reports: Other (generalized weakness) Skin: Reports: No Symptoms. Denies: Bruising, Rash Neurological: Reports: No Symptoms, Confusion (normal for pt). Denies: Headache - Patient Data Vitals - Most Recent: Last Vital Signs Temp 36.9 C 07/29/19 03:29 Pulse 96 07/29/19 03:29 Resp 20 07/29/19 03:29 BP 132/76 07/29/19 03:29 Pulse Ox 94 L 07/29/19 03:29 Weight - Most Recent: 69.218 kg Lab Results Last 24 Hours: Laboratory Results - last 24 hr 07/27/19 07/28/19 07/28/19 Range/Units 17:23 07:28 11:27 POC Glucose 303 H 200 H 283 H (75-105) mg/dl 07/28/19 07/28/19 Range/Units 17:27 20:15 POC Glucose 249 H 185 H (75-105) mg/dl Med Orders - Current: Current Medications Acetaminophen (Tylenol) 650 mg PO Q4H PRN PRN Reason: Pain (Mild 1-3)/fever Last Admin: 07/27/19 23:50 Dose: 650 mg Aspirin (Halfprin) 81 mg PO WITHBREAKFAST [facility] Last Admin: 07/28/19 07:33 Dose: 81 mg Atorvastatin Calcium (Lipitor) 40 mg PO QAM [facility] Last Admin: 07/28/19 07:33 Dose: 40 mg Clopidogrel Bisulfate (Plavix) 75 mg PO DAILY [facility] Last Admin: 07/28/19 07:33 Dose: 75 mg Enoxaparin Sodium (Lovenox) 40 mg SUBCUT Q24H [facility] Last Admin: 07/28/19 16:14 Dose: 40 mg Insulin Human Lispro (Humalog) 0 unit SUBCUT WITHMEALSANDBED [facility]; Protocol Last Admin: 07/28/19 20:15 Dose: 1 units Metformin HCl (Glucophage) 1,000 mg PO BID@0800,1700 [facility] Last Admin: 07/28/19 17:28 Dose: 1,000 mg Ondansetron HCl (Zofran Odt) 4 mg PO Q4H PRN PRN Reason: nausea, able to take PO Ondansetron HCl (Zofran) 4 mg IV Q4H PRN PRN Reason: Nausea/Vomiting Sodium Chloride (Saline Flush) 10 ml FLUSH ASDIRECTED PRN PRN Reason: Keep Vein Open Tamsulosin HCl (Flomax) 0.4 mg PO BEDTIME [facility] Last Admin: 07/28/19 19:05 Dose: 0.4 mg Trazodone HCl (Trazodone) 50 mg PO BEDTIME PRN PRN Reason: Insomnia Discontinued Medications Insulin Human Regular (Novolin R) 0 unit SUBCUT QIDACANDBED [facility]; Protocol Last Admin: 07/28/19 12:52 Dose: Not Given Metformin HCl (Glucophage) 1,000 mg PO BID [facility] - Exam General: Alert, Oriented (to person only), Cooperative Neck: Supple Lungs: Clear to Auscultation, Normal Respiratory Effort Cardiovascular: Regular Rate, Regular Rhythm GI/Abdominal Exam: Normal Bowel Sounds, Soft, Non-Tender Back Exam: Normal Inspection, Full Range of Motion Extremities: Normal Inspection, Normal Range of Motion, Non-Tender, Normal Capillary Refill Peripheral Pulses: 2+: Radial (L), Radial (R) Skin: Warm, Dry Neurological: No New Focal Deficit Psy/Mental Status: Alert, Normal Affect, Normal Mood Sepsis Event Note - Evaluation Sepsis Screening Result: No Definite Risk - Focused Exam Vital Signs: Vital Signs Temp Pulse Resp BP BP Pulse Ox 07/29/19 03:29 36.9 C 96 20 132/76 94 L 07/29/19 00:00 36.5 C 91 20 154/87 H 96 07/28/19 19:45 37.2 C 94 20 147/82 H 96 Date Exam was Performed: 07/29/19 Time Exam was Performed: 07:37 - Problem List & Annotations (1) Weakness SNOMED Code(s): 03317444 Code(s): R53.1 - WEAKNESS Status: Acute Priority: High Current Visit: No - Problem List Review Problem List Initiated/Reviewed/Updated: Yes - My Orders Last 24 Hours: My Active Orders 07/28/19 17:30 Insulin Lispro [HumaLOG] See Protocol SUBCUT WITHMEALSANDBED 07/28/19 Lunch Consistent Carbohydrate Diet [DIET] - Plan Plan:: pts Blood sugar elevated will start sliding scale insulin, no neuro deficits, no casas, has ambulated in the [place] with his walker without any difficulty, will continue to monitor pt and will make changes to his tx plan as needed 07/29/2019 0739 pt continues to improve, has been walking in the arm[place] with help and his walker, c/o feeling "weak" today, no cp or sob, no casas or dizziness. has been eating and drinking normally, normal BM, no fever, no unilateral weakness. will repeat labs in am and consult case management for discharge planning.
[2019-07-29] MEDS: Insulin Lispro 100 Units/ML 3 ML Vial SUBCUT SCH ×4 (07:52→20:19)
[2019-07-29] MEDS: metFORMIN 500 MG Tab PO SCH ×2 (07:54→16:38)
[2019-07-29] MEDS: atorvaSTATin 20 MG Tab PO SCH (07:55)
[2019-07-29] MEDS: Clopidogrel 75 MG Tab PO SCH (07:55)
[2019-07-29] MEDS: Aspirin 81 MG Tab.EC PO SCH (07:55)
[2019-07-29] MEDS: Acetaminophen 325 MG Tab PO PRN (16:22)
[2019-07-29] MEDS: Enoxaparin 40 MG/0.4 ML Syringe SUBCUT SCH (16:38)
[2019-07-29] MEDS: Tamsulosin 0.4 MG Cap.ER PO SCH (19:24)
[2019-07-30] MEDS: Aspirin 81 MG Tab.EC PO SCH (07:34)
[2019-07-30] MEDS: Clopidogrel 75 MG Tab PO SCH (07:34)
[2019-07-30] MEDS: metFORMIN 500 MG Tab PO SCH ×2 (07:34→17:34)
[2019-07-30] MEDS: atorvaSTATin 20 MG Tab PO SCH (07:34)
[2019-07-30] MEDS: Insulin Lispro 100 Units/ML 3 ML Vial SUBCUT SCH ×4 (07:40→20:26)
[2019-07-30 08:07] LABS: CHLORIDE,CL 102 mEq/L (98-106); SODIUM,NA 136 mEq/L (136-145)
--- NOTE | 2019-07-30 09:13 | PN ---
DATE: S: Mr. Villeda was admitted by [facility] before the weekend for what was felt to be a hemiparesis or cerebrovascular accident. MRI ultimately came back showing no acute signs of stroke. He does have a history of that. He has been hospitalized in the past for dizziness, weakness. [facility]. As of late, he has been in his own apartment. Family are very active in his cares. He is not a wonderful historian. Over the weekend, he did have some low-grade temperatures at times and he has had some confusion at times where he gets wild and starts acting out, having nonsensical speech, etc. His MRI report did not show any acute abnormality. O: VITAL SIGNS: Today, his temperature is 97.4, pulse is 82, his BP is 125/65. GENERAL: He is sitting up in bed. He appears pleasant and comfortable, in no distress. Converses without much difficulty. HEENT: Grossly benign. NECK: Veins are flat. LUNGS: His lung sounds appear clear throughout. CARDIAC: Tones are regular. ABDOMEN: Nontender. EXTREMITIES: He has no peripheral edema. NEUROLOGIC: Strength in his hands appears equal. He has no obvious deficits on either side that are grossly abnormal. ASSESSMENT: 1. CEREBROVASCULAR ACCIDENT, RESOLVED. 2. DELIRIUM. 3. HYPERTENSION. 4. HYPERLIPIDEMIA. 5. TYPE 2 DIABETES. P: We will have PT start working with him for strengthening. Going to be speaking with family today about long-term plans including possible placement. I see no metabolic reason for his acute delirium. I will get a repeat EKG and troponin today, however, as well as a CRP. No other changes. DANIEL/BAYRON /[id number]
--- NOTE | 2019-07-30 11:21 | PN ---
DATE: 07/30/2019 ADDENDUM: I had a conversation with the patient's daughter who is concerned about possible Parkinson's. He does have issues with gait, weakness at times. She does feel like he is rigid, I have actually never saw him. My second time meeting him, I have never seen him outside of a bed, but certainly her concerns in the symptoms that she is describing including difficulty swallowing, speech abnormalities at times, dementia, etc., could coincide with Parkinson's. I am going to have PT ambulate him today and get a feel for how they feel his gait is. Staff will do mini-mental status exam and this would be an appropriate time to give him a trial of Sinemet. Daughter is happy with that plan. He should be, assuming he does well, ready for discharge in the next couple of days. DANIEL/BAYRON /[id number]
[2019-07-30] MEDS: Carbidopa/Levodopa 25-100 MG Tab PO SCH (17:34)
[2019-07-30] MEDS ORDERED: Enoxaparin 40 MG/0.4 ML Syringe SUBCUT SCH (20:00)
[2019-07-30] MEDS: Tamsulosin 0.4 MG Cap.ER PO SCH (20:25)
[2019-07-31] MEDS: atorvaSTATin 20 MG Tab PO SCH (07:26)
[2019-07-31] MEDS: Carbidopa/Levodopa 25-100 MG Tab PO SCH (07:26)
[2019-07-31] MEDS: Clopidogrel 75 MG Tab PO SCH (07:26)
[2019-07-31] MEDS: Aspirin 81 MG Tab.EC PO SCH (07:26)
[2019-07-31] MEDS: metFORMIN 500 MG Tab PO SCH (07:26)
[2019-07-31] MEDS: Insulin Lispro 100 Units/ML 3 ML Vial SUBCUT SCH (07:31)
--- NOTE | 2019-07-31 10:47 | PN ---
DATE: S: Parker had a slightly better day yesterday. He had much less confusion. Still has some actual sundowning-type picture, seems to do better in the morning and early afternoon, and around late afternoon and evening, he starts to become more confused, having more behaviors. Did have a long conversation with his daughter yesterday, and she brought up some interesting history on him. He seems to have issues since his cardiac surgery including worsening of his gait, swallowing issues, and difficulties with memory, and she brought up the question of Parkinson's. He certainly has many characteristics, and yesterday I did start him on Sinemet. Staff have noted some slight improvement in his overall well-being, and at some degree even his ability to walk. He really has no complaints. When he sits in his chair or when I see him in the morning, he is very coherent and follows commands and answers most questions appropriately. This does change later in the day. He did have a mini mental status exam yesterday, which he scored 17/30. He has no focality to any of his neuro exams at this point. His vital signs have been stable. O: GENERAL: His exam today shows him to be pleasant and cooperative. HEENT: Remains benign. There is a slight flat affect. NECK: Supple. LUNGS: Clear. CARDIAC: Tones appear regular. ABDOMEN: Nontender. He has no peripheral edema. NEUROLOGIC: I did put him through some testing, and he certainly has some degree of cogwheel rigidity. ASSESSMENT: 1. POSSIBLE CEREBROVASCULAR ACCIDENT WITH RESOLUTION. 2. DEMENTIA. 3. POSSIBLE PARKINSON'S. 4. DELIRIUM, IMPROVING. 5. HYPERTENSION. 6. TYPE 2 DIABETES. P: We are going to put him in the swing bed today for ongoing strengthening. We started him on Sinemet. I am going to have a psych consult for his mental status. At this point, no other metabolic abnormalities have been found. We will continue to monitor closely. Family do plan on, I believe, long-term care placement. DANIEL/BAYRON /[id number]
--- NOTE | 2019-07-31 11:42 | DISCH ---
REASON FOR HOSPITALIZATION: 1. CVA. 2. Hypertension. 3. Type 2 diabetes. DISCHARGE DIAGNOSIS: 1. POSSIBLE CEREBROVASCULAR ACCIDENT, RESOLVED. 2. DEMENTIA. 3. POSSIBLE PARKINSON DISEASE. 4. HYPERTENSION. 5. TYPE 2 DIABETES. 6. HYPERLIPIDEMIA. 7. DELIRIUM. HISTORY: The patient is a 78-year-old male who was admitted to our facility with possible stroke symptoms. He had weakness and inability to control or move his left side. He was admitted by Emily Posada. MRI of the brain showed no acute ischemic strokes. He was put in our facility and managed with expectant cares. HOSPITAL COURSE: Over the last 4 days, the patient has done well. He has had some issues with his gait, and we have had PT working with him. There are times, especially when he seems to sundown, when he gets significant behavioral issues, inability to follow commands, and some agitation. This has been managed quite easily. We were unable to find any metabolic reason for his lab work. Urine and electrolytes have all remained stable. He has had no vital sign irregularities during his stay. As stated earlier, the patient's MRI was fine. He is showing no focal neurologic deficits. After conversation with daughter, concern of Parkinson's was raised due to his swallowing difficulties, some issues with gait since he has had a cardiac procedure, and memory concerns. I have empirically started him on t.i.d. Sinemet to see if we get some improvement with that. We will have psych consult as he did score 17/30 on his mini mental status exam. At this time, the patient does not appear to be able to go home and live on his own. Family are looking into placement for him. We are going to put him in swing bed for ongoing physical therapy and strengthening. He will continue on Sinemet t.i.d. COMPLICATIONS: During stay were none. CONSULTATIONS: PT. DISPOSITION: Transferred to swing bed. DANIEL/BAYRON /[id number]
== END 2019-07-31 09:20 | disposition swing bed (61) | DRG 66 ==
LOC: UNDOADMIN 11:24 → CC.MS 11:24
PROVIDERS: ADMIT Physician Assistant Medical; ATTEND Family Medicine
DX: I63.9 Cerebral infarction, unspecified (principal); G20 Parkinson's disease; F02.80 Dementia in other diseases classified elsewhere, unspecified severity, without behavioral disturbance, psychotic disturbance, mood disturbance, and anxiety; E78.5 Hyperlipidemia, unspecified; E11.9 Type 2 diabetes mellitus without complications; I10 Essential (primary) hypertension; R26.9 Unspecified abnormalities of gait and mobility; Z79.82 Long term (current) use of aspirin; Z79.84 Long term (current) use of oral hypoglycemic drugs; Z79.899 Other long term (current) drug therapy
CPT/HCPCS: 36415; 70551; 80053; 81003; 82550; 82962; 84484; 85025; 86140; 93005; 93306; 93880; 97161-GP; 97530-GP; A9270-GY; J1650

== ENCOUNTER 2019-07-31 09:33 | Inpatient (IN) | payer MEDICARE ==
[2019-07-31] MEDS ORDERED: Acetaminophen 325 MG Tab PO PRN (12:00)
[2019-07-31] MEDS: Carbidopa/Levodopa 25-100 MG Tab PO SCH ×2 (12:35→17:26)
[2019-07-31] MEDS: metFORMIN 500 MG Tab PO SCH (17:26)
[2019-07-31] MEDS: Enoxaparin 40 MG/0.4 ML Syringe SUBCUT SCH (19:27)
[2019-07-31] MEDS: Donepezil 5 MG Tab PO SCH (19:27)
[2019-07-31] MEDS: Tamsulosin 0.4 MG Cap.ER PO SCH (19:27)
[2019-07-31] MEDS: traZODone 50 MG Tab PO PRN (23:36)
[2019-08-01] MEDS: atorvaSTATin 20 MG Tab PO SCH (07:27)
[2019-08-01] MEDS: Carbidopa/Levodopa 25-100 MG Tab PO SCH ×3 (07:27→16:58)
[2019-08-01] MEDS: Aspirin 81 MG Tab.EC PO SCH (07:27)
[2019-08-01] MEDS: metFORMIN 500 MG Tab PO SCH ×2 (07:28→16:58)
[2019-08-01] MEDS: Clopidogrel 75 MG Tab PO SCH (07:28)
--- NOTE | 2019-08-01 08:51 | PCM.CONSBH ---
Hx. Present Illness - - General Date of Service: 08/01/19 Admit Problem/Dx: Admission Diagnosis/Problem Admission Diagnosis/Problem CVA, Cerebrovascular accident Dementia Sun downing Source of Information: Reports: Patient, Old Records, RN Notes Reviewed - History of Present Illness INITIAL COMMENTS - FREE TEXT/NARRATIVE: Patient is a78 year old male admitted to swing bed yesterday per Dr. Woods. Undersign consulted regarding behaviors/agitation exhibited by patient in later after noon / evenings. Patient wearing a hospital gown, wearing glasses, sitting up in the recliner. He alert and oriented x 2. He thought today was September 01, 2019. Patient has complaints of poor attention, excessive worries, and occasionally feels sad when thinking about his health. Parker does also note concerns about his memory not working as well as previously. He is unable to give undersign time frame for when these symptoms started. He has complaints of weakness and difficulty walking at time which triggers concern about falling. Patient reports poor sleep last night and did utilize PRN Trazodone. Nursing documented patient appeared more restless last evening after Trazodone. He has complaints of fatigue and states he slept poorly last evening. Reports poor appetite but feels that is starting to improve. Mini Mental Status Exam completed per undersign and patient scored a 19 which suggest moderate level of cognitive impairment. Nursing states patient does recognize at times when he responds with an odd comment and will correct himself. Nursing documented patient is more agitation, has a difficult time following commands, and is confused starting in late afternoon / early evenings. When trying to gather background information patient very reluctant to share as he does not want others in his family to know his responses to questions or how he feels towards them. - Related Data Allergies/Adverse Reactions: Allergies Allergy/AdvReac Type Severity Reaction Status Date / Time No Known Allergies Allergy Verified 07/27/19 12:36 Home Medications: Home Meds atorvaSTATin [Lipitor] 40 mg PO QAM 12/07/18 [History] metFORMIN [Glucophage] 1,000 mg PO BID 12/07/18 [History] traZODone HCl [Trazodone HCl] 50 mg PO BEDTIME PRN 12/07/18 [History] Acetaminophen [Tylenol] 650 mg PO Q4H PRN tablet 07/31/19 [Rx] Aspirin [Halfprin] 81 mg PO WITHBREAKFAST tab.ec 07/31/19 [Rx] Carbidopa/Levodopa [Carbidopa-Levodopa 25-100] 1 tab PO TIDMEALS #0 tablet 07/30 [Rx] Clopidogrel [Plavix] 75 mg PO DAILY tablet 07/31/19 [Rx] Tamsulosin [Flomax] 0.4 mg PO BEDTIME cap.er 07/31/19 [Rx] Donepezil [Aricept] 5 mg PO BEDTIME #30 tablet 08/03/19 [Rx] Past Medical Hx - Other Cardiovascular Hx: found that he had carotid stenosis; while testing, found out he needed CABG. CABG on 08-16-18, endarterectomy on 11-10-18; just returned to the [facility]. Did rehab in [facility] while staying with his daughter, 7 previous rehabs there according to our insurance department here. Has seen cardiology since CABG; his chest incision is healing, says his leg incision is healing. appetite good, some dizziness if he gets up fast-- discussed. Does not have a treadmill or bike at home, describes that he has some sort of rowing machine. Encouraged to walk outside. former smoker, Diabetes --says he checks tid, "coming down," discussed. Social & Family History - - Family History Family Psychiatric and CD Hx: Patient denies any family psychiatric history. - Tobacco Use Used Tobacco, but Quit: Yes - Alcohol Use Alcohol Use History: No - Living Situation & Occupation Living situation: Reports: , Alone Review of Systems - - Review of Systems: Review Of Systems: Comprehensive ROS is negative, except as noted in HPI. General: Reports: Weakness, Fatigue, Decreased Appetite HEENT: Reports: Glasses Psychiatric: Reports: Confusion. Denies: Hallucinations, Suicidal Ideation, Homicidal Ideation Exam - - Exam Exam: See Below - Vital Signs Vital Signs: Last Vital Signs Temp 36.4 C 08/01/19 08:00 Pulse 88 08/01/19 08:00 Resp 18 08/01/19 08:00 BP 162/84 H 08/01/19 08:00 Pulse Ox 97 08/01/19 08:00 - Exam General: Alert, Cooperative HEENT: Glasses Neuro Exam - Mental Status: Normal Mood/Affect, Disorientation to Time Psychiatric: Alert, Normal Affect, Normal Mood. No: Suicidal Ideation, Homicidal Ideation, Hallucinations - [place] I, II, III (1) SunDown syndrome SNOMED Code(s): 254157434, 453169141, [id number] ICD Code: F05 - DELIRIUM DUE TO KNOWN PHYSIOLOGICAL CONDITION Status: Acute - Plan FREE TEXT/NARRATIVE: Mental Status Examination: General appearance: adult male, has glasses on, wearing hospital gown , sitting up in the recliner. short graying hair. Mood: euthymic Affect: full range and congruent with mood content Suicidal/Homicidal ideation: denies suicidal or homicidal ideations Behavior: cooperative, guarded, fair eye contact Speech: clear, coherent, spontaneous, normal rate and volume Thought Process: goal directed, linear, Thought Content: negative, paranoid ideation, denies delusions or hallucinations Judgment/Insight: appears developmentally appropriate and insight intact Orientation: oriented to person and place Attention Span and Concentration: patient demonstrated adequate concentration and focus Musculoskeletal: unable to assess Patient exhibits symptoms associated with sun downing related to dementia. - Orders Orders Last 24hrs: Active Orders 24 hr Category Date Time Status Patient Status [ADT] Routine ADT 07/31/19 11:58 Active Ambulate [RC] .PRN Care 07/31/19 11:58 Active Blood Glucose Check, Bedside [RC] 0730,1700 Care 07/31/19 17:35 Active Cardiac Monitoring [RC] 08,1999 Care 07/31/19 14:31 Inactive May Shower [RC] .PRN Care 07/31/19 11:58 Active Neuro Check [RC] 08,1999 Care 07/31/19 19:30 Active Notify Provider Consults [RC] .PRN Care 07/31/19 12:02 Active Up With Assistance [RC] .PRN Care 07/31/19 11:58 Active Up to Chair [RC] .PRN Care 07/31/19 11:58 Active Vital Signs [RC] 0800,1999 Care 07/31/19 11:58 Active Consult to Physical Therapy [PT Evaluation and Cons 07/31/19 12:10 Active Treatment] [CONS] Routine Consult to Physician [CONS] Routine Cons 07/31/19 12:01 Active Consistent Carbohydrate Diet [DIET] Diet 07/31/19 Dinner Active Acetaminophen [Tylenol] Med 07/31/19 12:00 Active 650 mg PO Q4H PRN Aspirin [Halfprin] Med 08/01/19 08:00 Active 81 mg PO WITHBREAKFAST Carbidopa/Levodopa [Sinemet 25-100 mg] Med 07/31/19 12:00 Active 1 tab PO TIDMEALS Clopidogrel [Plavix] Med 08/01/19 08:00 Active 75 mg PO DAILY Donepezil [Aricept] Med 07/31/19 20:00 Active 5 mg PO BEDTIME Enoxaparin [Lovenox] Med 07/31/19 20:00 Active 40 mg SUBCUT BEDTIME Tamsulosin [Flomax] Med 07/31/19 20:00 Active 0.4 mg PO BEDTIME atorvaSTATin [Lipitor] Med 08/01/19 08:00 Active 40 mg PO DAILY metFORMIN [Glucophage] Med 07/31/19 17:30 Active 1,000 mg PO BIDMEALS traZODone Med 07/31/19 20:00 Active 50 mg PO BEDTIME PRN Resuscitation Status Routine Resus Stat 07/31/19 16:08 Ordered Medication Orders Acetaminophen (Tylenol) 650 mg PO Q4H PRN PRN Reason: Pain (Mild 1-3)/fever Aspirin (Halfprin) 81 mg PO WITHBREAKFAST [facility] Last Admin: 08/01/19 07:27 Dose: 81 mg Atorvastatin Calcium (Lipitor) 40 mg PO DAILY [facility] Last Admin: 08/01/19 07:27 Dose: 40 mg Carbidopa/Levodopa (Sinemet 25-100 Mg) 1 tab PO TIDMEALS [facility] Last Admin: 08/01/19 07:27 Dose: 1 tab Admin: 07/31/19 17:26 Dose: 1 tab Admin: 07/31/19 12:35 Dose: 1 tab Clopidogrel Bisulfate (Plavix) 75 mg PO DAILY [facility] Last Admin: 08/01/19 07:28 Dose: 75 mg Donepezil HCl (Aricept) 5 mg PO BEDTIME [facility] Last Admin: 07/31/19 19:27 Dose: 5 mg Enoxaparin Sodium (Lovenox) 40 mg SUBCUT BEDTIME [facility] Last Admin: 07/31/19 19:27 Dose: 40 mg Metformin HCl (Glucophage) 1,000 mg PO BIDMEALS [facility] Last Admin: 08/01/19 07:28 Dose: 1,000 mg Admin: 07/31/19 17:26 Dose: 1,000 mg Tamsulosin HCl (Flomax) 0.4 mg PO BEDTIME [facility]A Last Admin: 07/31/19 19:27 Dose: 0.4 mg Trazodone HCl (Trazodone) 50 mg PO BEDTIME PRN PRN Reason: Insomnia Last Admin: 07/31/19 23:36 Dose: 50 mg TeleHealth - TeleHealth Patient Service Facility: [facility]: [facility] [place]
[2019-08-01] MEDS: Donepezil 5 MG Tab PO SCH (19:10)
[2019-08-01] MEDS: Tamsulosin 0.4 MG Cap.ER PO SCH (19:10)
[2019-08-01] MEDS: Enoxaparin 40 MG/0.4 ML Syringe SUBCUT SCH (19:12)
[2019-08-01] MEDS: traZODone 50 MG Tab PO PRN (22:25)
[2019-08-02] MEDS: Aspirin 81 MG Tab.EC PO SCH (07:24)
[2019-08-02] MEDS: atorvaSTATin 20 MG Tab PO SCH (07:24)
[2019-08-02] MEDS: metFORMIN 500 MG Tab PO SCH ×2 (07:24→18:34)
[2019-08-02] MEDS: Clopidogrel 75 MG Tab PO SCH (07:25)
[2019-08-02] MEDS: Carbidopa/Levodopa 25-100 MG Tab PO SCH ×3 (07:25→18:34)
[2019-08-02] MEDS ORDERED: Tuberculin, PPD 5 Units/0.1 ML 1 ML MDV IDERM ONE (13:30)
[2019-08-02] MEDS: Enoxaparin 40 MG/0.4 ML Syringe SUBCUT SCH (20:28)
[2019-08-02] MEDS: Donepezil 5 MG Tab PO SCH (20:28)
[2019-08-02] MEDS: Tamsulosin 0.4 MG Cap.ER PO SCH (20:28)
[2019-08-03] MEDS: Carbidopa/Levodopa 25-100 MG Tab PO SCH (07:46)
[2019-08-03] MEDS: Clopidogrel 75 MG Tab PO SCH (07:46)
[2019-08-03] MEDS: metFORMIN 500 MG Tab PO SCH (07:46)
[2019-08-03] MEDS: atorvaSTATin 20 MG Tab PO SCH (07:47)
[2019-08-03] MEDS: Aspirin 81 MG Tab.EC PO SCH (07:47)
--- NOTE | 2019-08-03 09:53 | DISCH ---
ADMISSION DIAGNOSES: 1. Weakness. 2. Possible cerebrovascular accident. 3. Dementia. 4. Hypertension. 5. Type 2 diabetes. 6. Hyperlipidemia. 7. Delirium. DISCHARGE DIAGNOSIS: 1. 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 2. WEAKNESS, IMPROVED. 3. HYPERTENSION. 4. TYPE 2 DIABETES. 5. HYPERLIPIDEMIA. 6. DELIRIUM, RESOLVED. HISTORY: The patient is a 78-year-old male admitted to our facility with possible stroke-like symptoms. He was having some weakness, increased inability to control his left side. He was admitted by Emily Posada. During his acute care stay, MRI showed no acute cerebrovascular accident. He was managed appropriately in our facility and ultimately transferred to swing bed. During his acute care stay, conversation with daughter was very helpful and that she described some symptoms suggesting Parkinson's such as weakness, difficulty with gait, and swallowing. He was initiated on Sinemet. He had a nice initial response before he was transferred to swing bed. SWING BED COURSE: The patient has done well over the last 4 days. He has had improvement in his overall functional capacity with the addition of Sinemet. Physical Therapy has given me daily updates and his strength and walking have improved. He continues to have a little bit of sundowning. He had a mini- mental exam by Jimena Arenas with a Psych consult. She scored him at 19. We initiated him on Aricept and we will titrate that up while he is in [facility]. At this time, the patient will go on his prior meds. We have added the addition of Sinemet and Aricept. No other changes to his course. We will continue to follow him routinely on rounds. COMPLICATIONS: During his stay were none. CONSULTATIONS: 1. PT. 2. Psychiatry. DISPOSITION: Transferred to [facility]. DANIEL/BAYRON /[id number]
== END 2019-08-03 09:40 | DRG 948 ==
LOC: CC.MS 09:33 → UNDOADMIN 09:33 → CC.MS 11:58
PROVIDERS: ADMIT Family Medicine; ATTEND Family Medicine
DX: R53.1 Weakness (principal); G20 Parkinson's disease; F02.80 Dementia in other diseases classified elsewhere, unspecified severity, without behavioral disturbance, psychotic disturbance, mood disturbance, and anxiety; I10 Essential (primary) hypertension; E11.9 Type 2 diabetes mellitus without complications; E78.5 Hyperlipidemia, unspecified; Z79.82 Long term (current) use of aspirin; Z79.899 Other long term (current) drug therapy
CPT/HCPCS: 82962; 86580; 97110-GP; 97116-GP; 97530-GP; A9270-GY; J1650

== ENCOUNTER 2020-03-05 01:35 | Emergency (ER) | payer MEDICARE ==
[2020-03-05] MEDS: Orphenadrine 60 MG/2 ML Inj IM SCH (02:12)
--- NOTE | 2020-03-05 02:12 | EDM.PDOC ---
ED HPI GENERAL MEDICAL PROBLEM - General Chief Complaint: Back Pain or Injury Stated Complaint: back pain Time Seen by Provider: 03/05/20 01:59 Source of Information: Reports: Patient History Limitations: Reports: No Limitations - History of Present Illness INITIAL COMMENTS - FREE TEXT/NARRATIVE: Fell in the bathroom and hit the edge of the tub the end of last week. Has been having some left sided lower back pain since then. Had been doing some exercises at home today and since then. Tonight he has been what he describes as spasms. "My back tightens up and hurts when I move". Has not fallen again since that initial time. No other injuries at that time. Onset: Gradual Location: Reports: Back (left sided.) Treatments ENCAPSULATOR: Reports: Acetaminophen, Other (see below) Other Treatments ENCAPSULATOR: biofreeze Left Lower Back Pain Score (Numeric/FACES): 5 - Related Data Allergies Allergy/AdvReac Type Severity Reaction Status Date / Time No Known Allergies Allergy Verified 03/05/20 01:40 Home Meds: Home Meds atorvaSTATin [Lipitor] 40 mg PO QAM 12/07/18 [History] metFORMIN [Glucophage] 1,000 mg PO BID 12/07/18 [History] traZODone HCl [Trazodone HCl] 50 mg PO BEDTIME PRN 12/07/18 [History] Acetaminophen [Tylenol] 650 mg PO Q4H PRN tablet 07/31/19 [Rx] Carbidopa/Levodopa [Carbidopa-Levodopa 25-100] 1 tab PO TIDMEALS #0 tablet 07/31/19 [Rx] Clopidogrel [Plavix] 75 mg PO DAILY tablet 07/31/19 [Rx] Tamsulosin [Flomax] 0.4 mg PO BEDTIME cap.er 07/31/19 [Rx] Donepezil [Aricept] 5 mg PO BEDTIME #30 tablet 08/03/19 [Rx] Past Medical History Cardiovascular History: Reports: Bypass, CAD, High Cholesterol, Hypertension Other Cardiovascular History: found that he had carotid stenosis; while testing, found out he needed CABG. CABG on 08-16-18, endarterectomy on 11-10-18; just returned to the [facility]. Did rehab in [facility] while staying with his daughter, 7 previous rehabs there according to our insurance department here. Has seen cardiology since CABG; his chest incision is healing, says his leg incision is healing. appetite good, some dizziness if he gets up fast--discussed. Does not have a treadmill or bike at home, describes that he has some sort of rowing machine. Encouraged to walk outside. former smoker, Diabetes--says he checks tid, "coming down," discussed. Neurological History: Reports: Parkinson's Endocrine/Metabolic History: Reports: Diabetes, Type II - Past Surgical History Cardiovascular Surgical History: Reports: Coronary Artery Bypass Social & Family History - Tobacco Use Tobacco Use Status *Q: Never Tobacco User - Caffeine Use Caffeine Use: Reports: None - Living Situation & Occupation Living situation: Reports: , Alone ED ROS GENERAL - Review of Systems Review Of Systems: See Below Constitutional: Denies: Fever, Chills Respiratory: Reports: No Symptoms Cardiovascular: Reports: No Symptoms GI/Abdominal: Reports: No Symptoms Musculoskeletal: Reports: Back Pain Skin: Reports: Bruising Neurological: Reports: No Symptoms ED EXAM,LOWER BACK PAIN/INJURY - Physical Exam Exam: See Below Exam Limited By: No Limitations General Appearance: Alert, WD/WN, Mild Distress Neck: Normal Inspection Respiratory/Chest: No Respiratory Distress, Lungs Clear, Normal Breath Sounds Cardiovascular: Regular Rate, Rhythm Back Exam: Paraspinal Tenderness (on the left.), Other (tender to the left lateral paraspinal area. Increase in pain with palpation or movmement. Bruising noted to the area that is tender.) Neurological: Alert Psychiatric: Normal Affect Skin Exam: Warm, Dry, Ecchymosis (to the left lateral back area.) Course - Vital Signs Last Recorded V/S: Last Vital Signs Temp 97.3 F 03/05/20 01:35 Pulse 106 H 03/05/20 01:35 Resp 16 03/05/20 01:35 BP 164/88 H 03/05/20 01:35 Pulse Ox 96 03/05/20 01:35 - Orders/Labs/Meds Orders: Active Orders 24 hr Category Date Time Status Orphenadrine [Norflex] Med 03/05/20 02:15 Ordered 60 mg IM Q12H Medication Orders Orphenadrine Citrate (Norflex) 60 mg IM Q12H SAMANTHA Meds: Medications Generic Name Dose Route Start Last Admin Trade Name Freq PRN Reason Stop Dose Admin Orphenadrine Citrate 60 mg 03/05/20 02:15 Norflex IM Q12H [facility] Departure - Departure Time of Disposition: 02:08 Disposition: Home, Self-Care 01 Condition: Good Clinical Impression: Muscle spasm of back - Discharge Information *PRESCRIPTION DRUG MONITORING PROGRAM REVIEWED*: Not Applicable *COPY OF PRESCRIPTION DRUG MONITORING REPORT IN PATIENT SERGIO: Not Applicable Instructions: Muscle Cramps and Spasms Referrals: PCP,None [Primary Care Provider] - Forms: ED Department Discharge Additional Instructions: Heating pad to back norflex 100 mg twice a day as needed for spasms- may cause some drowsiness. tylenol or ibuprofen as needed for discomfort and pain recheck in the clinic if not improving. No lifting Sepsis Event Note (ED) - Evaluation Sepsis Screening Result: No Definite Risk - Focused Exam Vital Signs: Vital Signs Temp Pulse Resp BP Pulse Ox 03/05/20 01:35 97.3 F 106 H 16 164/88 H 96 - Problem List & Annotations (1) Muscle spasm of back SNOMED Code(s): 633511031 Code(s): M62.830 - MUSCLE SPASM OF BACK Status: Acute Priority: High Current Visit: Yes - Problem List Review Problem List Initiated/Reviewed/Updated: Yes - My Orders Last 24 Hours: My Active Orders 03/05/20 02:15 Orphenadrine [Norflex] 60 mg IM Q12H - Assessment/Plan Last 24 Hours: My Active Orders 03/05/20 02:15 Orphenadrine [Norflex] 60 mg IM Q12H
== END 2020-03-05 02:40 | disposition home or self-care (01) ==
LOC: CC.ED 01:35
DX: S30.0XXA Contusion of lower back and pelvis, initial encounter (principal); I25.10 Atherosclerotic heart disease of native coronary artery without angina pectoris; E78.00 Pure hypercholesterolemia, unspecified; I10 Essential (primary) hypertension; G20 Parkinson's disease; E11.9 Type 2 diabetes mellitus without complications; Z79.84 Long term (current) use of oral hypoglycemic drugs; Z79.899 Other long term (current) drug therapy; Z95.1 Presence of aortocoronary bypass graft; Z79.02 Long term (current) use of antithrombotics/antiplatelets; Z87.891 Personal history of nicotine dependence; W22.8XXA Striking against or struck by other objects, initial encounter
CPT/HCPCS: 96372; 99283; J2360

== ENCOUNTER 2020-06-06 18:07 | Observation (INO) | payer MEDICARE ==
[2020-06-06 18:36] LABS: CHLORIDE,CL 101 mEq/L (98-106); SODIUM,NA 140 mEq/L (136-145)
[2020-06-06] MEDS ORDERED: Acetaminophen 500 MG Tab PO ONE (18:58)
--- NOTE | 2020-06-06 19:21 | EDM.PDOC ---
ED HPI GENERAL MEDICAL PROBLEM - General Chief Complaint: General Stated Complaint: weakness s/p covid vaccine Time Seen by Provider: 06/06/20 18:15 Source of Information: Reports: Patient, Family History Limitations: Reports: No Limitations - History of Present Illness INITIAL COMMENTS - FREE TEXT/NARRATIVE: Parker is a 79 year old male who presents to ER with complaints of weakness, decreased appetite. States awoke this am and felt weak and has progressively gotten worse through the day. He did get his covid vaccine, second dose, yesterday. Admits to only a sore arm with the first injection. Denies shortness of breath. Does have chills, unaware of any fever. Decreased appetite, occasional nausea. No vomiting or diarrhea. No cough. Son rod was hardly able to walk this afternoon with his walker and requested to come and be evaluated. Onset: Gradual Duration: Hour(s):, Getting Worse Location: Reports: Generalized Severity: Moderate Improves with: Reports: Rest Associated Symptoms: Reports: Fever/Chills, Loss of Appetite, Malaise, Nausea/Vomiting, Weakness. 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: Acetaminophen - Related Data Allergies Allergy/AdvReac Type Severity Reaction Status Date / Time No Known Allergies Allergy Verified 06/06/20 18:11 Home Meds: Home Meds atorvaSTATin [Lipitor] 40 mg PO QAM 12/07/18 [History] metFORMIN [Glucophage] 1,000 mg PO BID 12/07/18 [History] Tamsulosin [Flomax] 0.4 mg PO BEDTIME cap.er 07/31/19 [Rx] Acetaminophen [Tylenol] 650 mg PO BID 06/06/20 [History] Aspirin [Aspirin EC] 81 mg PO DAILY 06/06/20 [History] Carbidopa/Levodopa [Carbidopa-Levodopa 25-100] 1.5 tab PO TIDMEALS 06/06/20 [History] Donepezil [Aricept] 10 mg PO DAILY 06/06/20 [History] Mirtazapine 15 mg PO BEDTIME 06/06/20 [History] glipiZIDE [Glipizide ER] 5 mg PO DAILY 06/06/20 [History] Past Medical History Cardiovascular History: Reports: Bypass, CAD, High Cholesterol, Hypertension Other Cardiovascular History: found that he had carotid stenosis; while testing, found out he needed CABG. CABG on 08-16-18, endarterectomy on 11-10-18; just returned to the [facility]. Did rehab in [facility] while staying with his daughter, 7 previous rehabs there according to our insurance department here. Has seen cardiology since CABG; his chest incision is healing, says his leg incision is healing. appetite good, some dizziness if he gets up fast--discussed. Does not have a treadmill or bike at home, describes that he has some sort of rowing machine. Encouraged to walk outside. former smoker, Diabetes--says he checks tid, "coming down," discussed. Neurological History: Reports: Parkinson's Endocrine/Metabolic History: Reports: Diabetes, Type II - Past Surgical History Cardiovascular Surgical History: Reports: Coronary Artery Bypass Social & Family History - Family History Family Medical History: No Pertinent Family History - Tobacco Use Tobacco Use Status *Q: Former Tobacco User Used Tobacco, but Quit: Yes Month/Year Tobacco Last Used: 1979 Second Hand Smoke Exposure: No - Caffeine Use Caffeine Use: Reports: None - Living Situation & Occupation Living situation: Reports: , Alone ED ROS GENERAL - Review of Systems Review Of Systems: See Below Constitutional: Reports: Chills, Malaise, Weakness, Fatigue, Decreased Appetite. Denies: Fever HEENT: Denies: Ear Pain, Rhinitis, Sinus Problem, Throat Pain Respiratory: Denies: Shortness of Breath, Cough Cardiovascular: Denies: Chest Pain, Edema, Lightheadedness Endocrine: Reports: Fatigue GI/Abdominal: Reports: Nausea. Denies: Abdominal Pain, Constipation, Diarrhea, Vomiting : Reports: No Symptoms Musculoskeletal: Reports: No Symptoms Skin: Reports: No Symptoms Neurological: Reports: Weakness ED EXAM, GENERAL - Physical Exam Exam: See Below Exam Limited By: No Limitations General Appearance: Alert, WD/WN, No Apparent Distress Ears: Normal External Exam, Normal TMs Nose: Normal Inspection, Normal Mucosa, No Blood Throat/Mouth: Normal Inspection, Normal Oropharynx Head: Normocephalic Neck: Normal Inspection, Supple, Non-Tender Respiratory/Chest: No Respiratory Distress, Lungs Clear, Normal Breath Sounds Cardiovascular: Regular Rate, Rhythm, No Edema GI/Abdominal: Normal Bowel Sounds, Soft, Non-Tender Extremities: Normal Inspection, No Pedal Edema Neurological: Alert, Oriented Skin Exam: Warm, Dry Course - Vital Signs Last Recorded V/S: Last Vital Signs Temp 101 F H 06/06/20 19:10 Pulse 94 06/06/20 18:12 Resp 18 06/06/20 18:12 BP 171/96 H 06/06/20 18:12 Pulse Ox - Orders/Labs/Meds Orders: Medication Orders Acetaminophen (Tylenol) 650 mg PO BID SAMANTHA Aspirin (Halfprin) 81 mg PO DAILY SAMANTHA Carbidopa/Levodopa (Sinemet 25-100 Mg) 1.5 tab PO TIDMEALS SAMANTHA Donepezil HCl (Aricept) 10 mg PO DAILY SAMANTHA Glipizide (Glucotrol Xl) 5 mg PO DAILY SAMANTHA Metformin HCl (Glucophage) 1,000 mg PO BID SAMANTHA Mirtazapine (Remeron) 15 mg PO BEDTIME SAMANTHA Non-Formulary Medication (Atorvastatin [Lipitor]) 40 mg PO QAM SAMANTHA Tamsulosin HCl (Flomax) 0.4 mg PO BEDTIME SAMANTHA Labs: Laboratory Tests 06/06/20 06/06/20 06/06/20 Range/Units 18:11 18:11 18:11 WBC 6.2 (5.0-10.0) 10^3/uL RBC 4.88 (4.50-6.00) 10^6/uL Hgb 15.4 (14.0-18.0) g/dL Hct 42.9 (40.0-54.0) % MCV 87.9 (82.0-94.0) fL MCH 31.6 (27.0-32.0) pg MCHC 35.9 (33.0-38.0) g/dL RDW Coeff of Vlad 13.5 (11.0-15.0) % Plt Count 139 L (150-400) 10^3/uL Neut % (Auto) 76.5 (35-85) % Lymph % (Auto) 16.1 (10-55) % [place] % (Auto) 6.9 (0-16) % Eos % (Auto) 0.3 (0-5) % Baso % (Auto) 0.2 (0-3) % Neut # (Auto) 4.76 (1.80-7.00) 10^3/uL Lymph # (Auto) 1.00 (1.00-4.80) 10^3/uL [place] # (Auto) 0.43 (0.00-0.80) 10^3/uL Eos # (Auto) 0.02 (0.00-0.45) 10^3/uL Baso # (Auto) 0.01 10^3/uL Sodium 140 (136-145) mEq/L Potassium 4.4 (3.5-5.0) mEq/L Chloride 101 (98-106) mEq/L Carbon Dioxide 25 (21-32) mmol/L BUN 16 (7-18) mg/dL Creatinine 1.1 (0.7-1.3) mg/dL Est Cr Clr Drug Dosing 49.94 mL/min Estimated GFR (MDRD) > 60 (>=60) mL/min Glucose 165 H (75-99) mg/dL Calcium 8.9 (8.4-10.1) mg/dL Magnesium 1.3 L (1.8-2.4) mg/dL Total Bilirubin 1.3 H (0.0-1.0) mg/dL AST 14 L (15-37) U/L ALT 18 (12-78) U/L Alkaline Phosphatase 71 (46-116) U/L C-Reactive Protein 2.6 H (0.2-0.8) mg/dL Total Protein 6.8 (6.4-8.2) g/dL Albumin 3.8 (3.4-5.0) g/dL Urine Color Yellow (YELLOW) Urine Appearance Clear (CLEAR) Urine pH 5.0 (4.5-8.0) Ur Specific [place] 1.025 H (1.003-1.020) Urine Protein 100 H (NEGATIVE) mg/dL Urine Glucose (UA) Negative (NEGATIVE) mg/dL Urine Ketones Trace H (NEGATIVE) mg/dL Urine Occult Blood Negative (NEGATIVE) Urine Nitrite Negative (NEGATIVE) Urine Bilirubin Negative (NEGATIVE) Urine Urobilinogen 1.0 (0.2-1.0) EU/dL Ur Leukocyte Esterase Negative (NEGATIVE) Urine RBC Not seen (0-5) /HPF Urine WBC Not seen (0-5) /HPF Meds: Medications Generic Name Dose Route Start Last Admin Trade Name Freq PRN Reason Stop Dose Admin Acetaminophen 650 mg 06/07/20 08:00 Tylenol PO BID SAMANTHA Aspirin 81 mg 06/07/20 08:00 Halfprin PO DAILY SAMANTHA Carbidopa/Levodopa 1.5 tab 06/07/20 08:00 Sinemet 25-100 Mg PO TIDMEALS SAMANTHA Donepezil HCl 10 mg 06/07/20 08:00 Aricept PO DAILY SAMANTHA Glipizide 5 mg 06/07/20 08:00 Glucotrol Xl PO DAILY SAMANTHA Metformin HCl 1,000 mg 06/07/20 08:00 Glucophage PO BID SAMANTHA Mirtazapine 15 mg 06/07/20 20:00 Remeron PO BEDTIME SAMANTHA Non-Formulary Medication 40 mg 06/07/20 08:00 Atorvastatin [Lipitor] PO QAM SAMANTHA Tamsulosin HCl 0.4 mg 06/07/20 20:00 Flomax PO BEDTIME SAMANTHA Discontinued Medications Generic Name Dose Route Start Last Admin Trade Name Freq PRN Reason Stop Dose Admin Acetaminophen 1,000 mg 06/06/20 18:58 06/06/20 19:10 Tylenol Extra Strength PO 06/06/20 18:59 1,000 mg ONETIME ONE Administration - Re-Assessments/Exams Free Text/Narrative Re-Assessment/Exam: 06/06/20 Labs noted, essentially stable except magnesium is low at 1.3. Will admit observation, replace magnesium. Repeat labs in am. Departure - Departure Time of Disposition: 19:21 Disposition: Refer to Observation Condition: Fair Clinical Impression: Weakness, Hypomagnesemia - Discharge Information *PRESCRIPTION DRUG MONITORING PROGRAM REVIEWED*: No *COPY OF PRESCRIPTION DRUG MONITORING REPORT IN PATIENT SERGIO: No Sepsis Event Note (ED) - Evaluation Sepsis Screening Result: Possible Sepsis Risk - Focused Exam Vital Signs: Vital Signs Temp Temp Pulse Resp BP 06/06/20 19:10 101 F H 06/06/20 18:12 101.6 F H 94 18 171/96 H - Problem List & Annotations (1) Weakness SNOMED Code(s): 90851908 Code(s): R53.1 - WEAKNESS Status: Acute Priority: High Current Visit: Yes (2) Hypomagnesemia SNOMED Code(s): 027882218 Code(s): E83.42 - HYPOMAGNESEMIA Status: Acute Priority: High Current Visit: Yes - Problem List Review Problem List Initiated/Reviewed/Updated: No - Assessment/Plan Admission H&P: Please use this note as an admission H&P Assessment:: Weakness Hypomagnesemia Plan: Admit to observation, telemetry. Magnesium sulfate IV. Repeat labs in am.
[2020-06-06] MEDS ORDERED: Sodium Chloride 0.9% 1,000 ML IV SCH (20:21)
[2020-06-06] MEDS ORDERED: Ibuprofen 200 MG Tab PO PRN (20:21)
[2020-06-06] MEDS ORDERED: Enoxaparin 40 MG/0.4 ML Syringe SUBCUT SCH (20:21)
[2020-06-06] MEDS ORDERED: Ondansetron 4 MG/2 ML SDV IV PRN (20:21)
[2020-06-06] MEDS ORDERED: Ondansetron 4 MG Tab.DIS PO PRN (20:21)
[2020-06-06] MEDS ORDERED: Acetaminophen 325 MG Tab PO PRN (20:21)
[2020-06-06] MEDS ORDERED: Magnesium Sulfate/Water 2 GM/50 ML BAG IV ONE (20:21)
[2020-06-06] MEDS: Enoxaparin 40 MG/0.4 ML Syringe SUBCUT SCH (22:22)
[2020-06-07] MEDS: Enoxaparin 40 MG/0.4 ML Syringe SUBCUT SCH (07:51)
[2020-06-07] MEDS ORDERED: METFORMIN 500 MG PO SCH (08:00)
[2020-06-07] MEDS ORDERED: LEVODOPA PO SCH (08:00)
[2020-06-07] MEDS ORDERED: CARBIDOPA PO SCH (08:00)
[2020-06-07] MEDS ORDERED: Aspirin 81 MG Tab.EC PO SCH (08:00)
[2020-06-07] MEDS ORDERED: GLIPIZIDE 5 MG PO SCH (08:00)
[2020-06-07] MEDS ORDERED: ATORVASTATIN 40 MG PO SCH (08:00)
[2020-06-07] MEDS ORDERED: Acetaminophen 325 MG Tab PO SCH (08:00)
[2020-06-07] MEDS ORDERED: Magnesium Chloride 64 MG Tab.ER PO SCH (08:00)
[2020-06-07] MEDS ORDERED: DONEPEZIL 10 MG PO SCH (08:00)
[2020-06-07 08:02] LABS: CHLORIDE,CL 105 mEq/L (98-106); SODIUM,NA 141 mEq/L (136-145)
--- NOTE | 2020-06-07 10:46 | PCM.DCSUM1 ---
Discharge Summary - Hospital Course Free Text/Narrative:: Parker is a 79 year old male who presented to ER with increased weakness and fatigue. Had awoke in the am, unable to ambulate well and worsened over the course of the day. Deport hot and cold at times. Found to be febrile in ER. Had received his second Covid vaccination the day prior. Appetite decreased. No cough, shortness of breath. Nausea without vomiting. No diarrhea. Labs done in the ER were fairly stable except magnesium low at 1.3. Admitted for weakness. Given IV fluids, magnesium 2 gm and started on Slo Mag. Son reports history of low magnesium in [place]. Was to eat bananas to try to maintain, has not taken oral meds. Diagnosis: Stroke: No Modified Yajaira Scale: No Symptoms at All Modified Woodland Scale Score: 0 - Discharge Data Discharge Date: 06/07/20 Discharge Disposition: Home, Self-Care 01 Condition: Fair - Referral to Home Health Primary Care Physician: Ilan Woods MD - Discharge Diagnosis/Problem(s) (1) Weakness SNOMED Code(s): 44869064 ICD Code: R53.1 - WEAKNESS Status: Acute Priority: High Current Visit: Yes (2) Hypomagnesemia SNOMED Code(s): 528099293 ICD Code: E83.42 - HYPOMAGNESEMIA Status: Acute Priority: High Current Visit: Yes - Patient Summary/Data Complications: none Hospital Course: Patient is doing much better today. Feels "normal". No fevers this am. Labs much improved, magnesium 2.0. Did have patient get up and ambulate, unstable but feels is his norm. Was able to rise up from bed himself, walked in the hallway. Denies chest pain, shortness of breath, nausea or vomiting. Did eat well this am. Will discharge home, daughter will be here to spend next 24 hours with him. Advised son will need to take magnesium supplementation at home. - Patient Instructions Diet: Usual Diet as Tolerated Activity: As Tolerated - Discharge Plan *PRESCRIPTION DRUG MONITORING PROGRAM REVIEWED*: No *COPY OF PRESCRIPTION DRUG MONITORING REPORT IN PATIENT SERGIO: No Prescriptions/Med Rec: Magnesium Chloride [Mag-64] 64 mg PO BIDMEALS #60 tab.er Home Medications: Home Meds atorvaSTATin [Lipitor] 40 mg PO QAM 12/07/18 [History] Tamsulosin [Flomax] 0.4 mg PO BEDTIME cap.er 07/31/19 [Rx] Acetaminophen [Tylenol] 650 mg PO BID 06/06/20 [History] Aspirin [Aspirin EC] 81 mg PO DAILY 06/06/20 [History] Carbidopa/Levodopa [Carbidopa-Levodopa 25-100] 1.5 tab PO TIDMEALS 06/06/20 [History] Donepezil [Aricept] 10 mg PO DAILY 06/06/20 [History] Mirtazapine 15 mg PO BEDTIME 06/06/20 [History] glipiZIDE [Glipizide ER] 5 mg PO DAILY 06/06/20 [History] metFORMIN HCl [Metformin HCl ER] 1,000 mg PO BID 06/06/20 [History] Magnesium Chloride [Mag-64] 64 mg PO BIDMEALS #60 tab.er 06/07/20 [Rx] Forms: ED Department Discharge Referrals: Ilan Woods MD [Primary Care Provider] - (Follow up in one week with Dr. Woods or available provider. Needs lab prior) - Discharge Summary/Plan Comment DC Time >30 min.: No - General Info Date of Service: 06/07/20 Admission Dx/Problem (Free Text: Weakness Hypomagnesemia Functional Status: Reports: Pain Controlled, Tolerating Diet, Ambulating - Review of Systems General: Reports: Weakness, Fatigue, Malaise. Denies: Fever HEENT: Reports: No Symptoms Pulmonary: Denies: Shortness of Breath, Cough Cardiovascular: Denies: Chest Pain, Edema, Lightheadedness Gastrointestinal: Denies: Abdominal Pain, Nausea, Vomiting Genitourinary: Reports: Incontinence Musculoskeletal: Reports: No Symptoms Skin: Reports: No Symptoms Neurological: Reports: Pre-Existing Deficit, Weakness - Patient Data Vitals - Most Recent: Last Vital Signs Temp 97.8 F 06/07/20 08:00 Pulse 83 06/07/20 08:00 Resp 18 06/07/20 08:00 BP 142/84 H 06/07/20 08:00 Pulse Ox 94 L 06/07/20 08:00 Weight - Most Recent: 156 lb 12.8 oz Lab Results - Last 24 hrs: Laboratory Results - last 24 hr 06/06/20 06/06/20 06/06/20 Range/Units 18:11 18:11 18:11 WBC 6.2 (5.0-10.0) 10^3/uL RBC 4.88 (4.50-6.00) 10^6/uL Hgb 15.4 (14.0-18.0) g/dL Hct 42.9 (40.0-54.0) % MCV 87.9 (82.0-94.0) fL MCH 31.6 (27.0-32.0) pg MCHC 35.9 (33.0-38.0) g/dL RDW Coeff of Vlad 13.5 (11.0-15.0) % Plt Count 139 L (150-400) 10^3/uL Neut % (Auto) 76.5 (35-85) % Lymph % (Auto) 16.1 (10-55) % [place] % (Auto) 6.9 (0-16) % Eos % (Auto) 0.3 (0-5) % Baso % (Auto) 0.2 (0-3) % Neut # (Auto) 4.76 (1.80-7.00) 10^3/uL Lymph # (Auto) 1.00 (1.00-4.80) 10^3/uL [place] # (Auto) 0.43 (0.00-0.80) 10^3/uL Eos # (Auto) 0.02 (0.00-0.45) 10^3/uL Baso # (Auto) 0.01 10^3/uL Sodium 140 (136-145) mEq/L Potassium 4.4 (3.5-5.0) mEq/L Chloride 101 (98-106) mEq/L Carbon Dioxide 25 (21-32) mmol/L BUN 16 (7-18) mg/dL Creatinine 1.1 (0.7-1.3) mg/dL Est Cr Clr Drug Dosing 49.94 mL/min Estimated GFR (MDRD) > 60 (>=60) mL/min Glucose 165 H (75-99) mg/dL Calcium 8.9 (8.4-10.1) mg/dL Magnesium 1.3 L (1.8-2.4) mg/dL Total Bilirubin 1.3 H (0.0-1.0) mg/dL AST 14 L (15-37) U/L ALT 18 (12-78) U/L Alkaline Phosphatase 71 (46-116) U/L C-Reactive Protein 2.6 H (0.2-0.8) mg/dL Total Protein 6.8 (6.4-8.2) g/dL Albumin 3.8 (3.4-5.0) g/dL Urine Color Yellow (YELLOW) Urine Appearance Clear (CLEAR) Urine pH 5.0 (4.5-8.0) Ur Specific [place] 1.025 H (1.003-1.020) Urine Protein 100 H (NEGATIVE) mg/dL Urine Glucose (UA) Negative (NEGATIVE) mg/dL Urine Ketones Trace H (NEGATIVE) mg/dL Urine Occult Blood Negative (NEGATIVE) Urine Nitrite Negative (NEGATIVE) Urine Bilirubin Negative (NEGATIVE) Urine Urobilinogen 1.0 (0.2-1.0) EU/dL Ur Leukocyte Esterase Negative (NEGATIVE) Urine RBC Not seen (0-5) /HPF Urine WBC Not seen (0-5) /HPF 06/07/20 06/07/20 Range/Units 05:11 05:11 WBC 4.2 L (5.0-10.0) 10^3/uL RBC 4.45 L (4.50-6.00) 10^6/uL Hgb 13.9 L (14.0-18.0) g/dL Hct 39.6 L (40.0-54.0) % MCV 89.0 (82.0-94.0) fL MCH 31.2 (27.0-32.0) pg MCHC 35.1 (33.0-38.0) g/dL RDW Coeff of Vlad 13.6 (11.0-15.0) % Plt Count 121 L (150-400) 10^3/uL Neut % (Auto) 59.9 (35-85) % Lymph % (Auto) 25.5 (10-55) % [place] % (Auto) 13.2 (0-16) % Eos % (Auto) 1.2 (0-5) % Baso % (Auto) 0.2 (0-3) % Neut # (Auto) 2.53 (1.80-7.00) 10^3/uL Lymph # (Auto) 1.08 (1.00-4.80) 10^3/uL [place] # (Auto) 0.56 (0.00-0.80) 10^3/uL Eos # (Auto) 0.05 (0.00-0.45) 10^3/uL Baso # (Auto) 0.01 10^3/uL Sodium 141 (136-145) mEq/L Potassium 4.4 (3.5-5.0) mEq/L Chloride 105 (98-106) mEq/L Carbon Dioxide 27 (21-32) mmol/L BUN 12 (7-18) mg/dL Creatinine 0.9 (0.7-1.3) mg/dL Est Cr Clr Drug Dosing 61.04 mL/min Estimated GFR (MDRD) > 60 (>=60) mL/min Glucose 127 H (75-99) mg/dL Calcium 8.4 (8.4-10.1) mg/dL Magnesium 2.0 (1.8-2.4) mg/dL Total Bilirubin (0.0-1.0) mg/dL AST (15-37) U/L ALT (12-78) U/L Alkaline Phosphatase (46-116) U/L C-Reactive Protein (0.2-0.8) mg/dL Total Protein (6.4-8.2) g/dL Albumin (3.4-5.0) g/dL Urine Color (YELLOW) Urine Appearance (CLEAR) Urine pH (4.5-8.0) Ur Specific [place] (1.003-1.020) Urine Protein (NEGATIVE) mg/dL Urine Glucose (UA) (NEGATIVE) mg/dL Urine Ketones (NEGATIVE) mg/dL Urine Occult Blood (NEGATIVE) Urine Nitrite (NEGATIVE) Urine Bilirubin (NEGATIVE) Urine Urobilinogen (0.2-1.0) EU/dL Ur Leukocyte Esterase (NEGATIVE) Urine RBC (0-5) /HPF Urine WBC (0-5) /HPF Med Orders - Current: Current Medications Acetaminophen (Tylenol) 650 mg PO BID [facility] Last Admin: 06/07/20 07:52 Dose: 650 mg Documented by: Acetaminophen (Tylenol) 650 mg PO Q4H PRN PRN Reason: Pain (Mild 1-3)/fever Aspirin (Halfprin) 81 mg PO DAILY [facility] Last Admin: 06/07/20 07:52 Dose: 81 mg Documented by: Carbidopa/Levodopa (Sinemet 25-100 Mg) 1.5 tab PO TIDMEALS [facility] Last Admin: 06/07/20 07:53 Dose: 1.5 tab Documented by: Enoxaparin Sodium (Lovenox) 40 mg SUBCUT Q24H [facility] Last Admin: 06/07/20 07:51 Dose: 40 mg Documented by: Glipizide (Glucotrol Xl) 5 mg PO DAILY [facility] Last Admin: 06/07/20 07:54 Dose: 5 mg Documented by: Sodium Chloride (Normal Saline) 1,000 mls @ 75 mls/hr IV ASDIRECTED [facility] Last Admin: 06/06/20 21:17 Dose: 75 mls/hr Documented by: Ibuprofen (Motrin) 400 mg PO Q6H PRN PRN Reason: Pain (mild 1-3) Magnesium Chloride (Mag-64) 64 mg PO BIDMEALS [facility] Last Admin: 06/07/20 07:52 Dose: 64 mg Documented by: Mirtazapine (Remeron) 15 mg PO BEDTIME [facility] Atorvastatin 40mg (Pt Own) 40 mg PO QAM [facility] Last Admin: 06/07/20 07:53 Dose: 40 mg Documented by: Donepezil 10mg Tab * (*Pt Own) 10 each PO DAILY [facility] Last Admin: 06/07/20 07:52 Dose: 10 each Documented by: Metformin Er 500mg (Tabs Pt Own) 1,000 each PO BID [facility] Last Admin: 06/07/20 07:54 Dose: 1,000 each Documented by: Ondansetron HCl (Zofran) 4 mg IV Q4H PRN PRN Reason: Nausea/Vomiting Ondansetron HCl (Zofran Odt) 4 mg PO Q4H PRN PRN Reason: nausea, able to take PO Tamsulosin HCl (Flomax) 0.4 mg PO BEDTIME [facility] Discontinued Medications Acetaminophen (Tylenol Extra Strength) 1,000 mg PO ONETIME ONE Stop: 06/06/20 18:59 Last Admin: 06/06/20 19:10 Dose: 1,000 mg Documented by: Enoxaparin Sodium (Lovenox) 40 mg SUBCUT Q24H [facility] Last Admin: 06/06/20 22:23 Dose: Not Given Documented by: Magnesium Sulfate (Magnesium Sulfate In Water 2 Gm/50 Ml) 2 gm in 50 mls @ 50 mls/hr IV ONETIME ONE Stop: 06/06/20 21:20 Last Admin: 06/06/20 21:19 Dose: 50 mls/hr Documented by: - Exam General: Reports: Alert, Oriented HEENT: Reports: Mucous Membr. Moist/[place] Neck: Reports: Supple Lungs: Reports: Clear to Auscultation, Normal Respiratory Effort Cardiovascular: Reports: Regular Rate, Regular Rhythm GI/Abdominal Exam: Normal Bowel Sounds, Soft, Non-Tender Extremities: Normal Inspection, No Pedal Edema Skin: Reports: Warm, Dry Neurological: Reports: No New Focal Deficit
[2020-06-07] MEDS ORDERED: Tamsulosin 0.4 MG Cap.ER**PT OWN PO SCH (20:00)
[2020-06-07] MEDS ORDERED: MIRTAZAPINE 15 MG PO SCH (20:00)
== END 2020-06-07 11:23 | disposition home or self-care (01) ==
LOC: CC.ED 18:07 → CC.MS 19:21 → INTOOBSV 19:21 → UNDOADMOB 19:21 → CC.MS 19:22 → UNDODISOB 06-07 11:23
PROVIDERS: ADMIT Physician Assistant Medical; ATTEND Family Medicine
DX: R53.1 Weakness (principal); T50.B95A Adverse effect of other viral vaccines, initial encounter; E83.42 Hypomagnesemia; E78.00 Pure hypercholesterolemia, unspecified; I10 Essential (primary) hypertension; I25.10 Atherosclerotic heart disease of native coronary artery without angina pectoris; E11.9 Type 2 diabetes mellitus without complications; R32 Unspecified urinary incontinence; Z79.82 Long term (current) use of aspirin; Z79.899 Other long term (current) drug therapy; Z87.891 Personal history of nicotine dependence; Z95.1 Presence of aortocoronary bypass graft
CPT/HCPCS: 36415; 80048; 80053; 81001; 83735; 85025; 86140; 96365; 96372; 99217; 99220; 99285; A9270-GY; G0378; J1650; J3475; J7030